=== PATIENT | female | born 1935 | race African-American/Black ===

== ENCOUNTER 2017-02-02 17:21 | Observation (INO) | payer MEDICARE, MEDICAID ==
[~2017-02-02] VITALS: Ht 170.2 cm; Wt 91.6 kg
[~2017-02-02 17:21] MED LIST: AMBIEN5 MG PO; ANASTROZOLE1 MG PO; ARIMIDEX1 MG PO; ASPIRIN ADULT L81 M2; ASPIRIN LOW81 M1 PO; ASPIRIN81 MG PO; CALCIUM 600+D3 PO; CARAFATE1 GM PO; CELEBREX200 MG OR; COREG25 MG PO; COZAAR100 MG OR; CRESTOR20 MG PO; CYCLOBENZAPR10 MG PO; DARVOCET N-100100 - OR; DONEPEZIL5 MG PO; FERROUS SULF324 M1 PO; FLEXERIL10 MG PO; HYDROXYZ HCL50 MG OR; LASIX 40 MG TAB40 MG PO; LASIX 40 MG40 MG/TAB PO; LEVAQUIN750 MG PO; LIPITOR20 MG OR; LISINOPRIL10 MG PO; LISINOPRIL20 MG PO; LOPRESSOR50 MG PO; LORTAB 10 PO; METOLAZONE2.5 MG PO; METOPROLOL100 MG OR; NAPROXEN375 MG OR; NEXIUM40 M1 OR; NORCO1 TAB PO; NORVASC5 MG PO; OMEPRAZOLE20 MG PO; OMEPRAZOLE40 MG PO; PENICILLN VK500 MG OR; PERCOCET 10/31 COMBO PO; PLAVIX75 MG; PRAVASTATIN20 MG PO
[2017-02-02 19:09] LABS: IMMATURE GRANULOCYTES 0.3 % (0.0-1.0); MEAN CELL VOLUME 70.6 fL CALC (80.0-100.0); MEAN CORPUSCULAR HGB 19.4 pG CALC (26.0-32.0); MEAN CORPUSCULAR HGB CONC 27.5 g/L CALC (32.0-36.0); NEUT# 3.66 thou/uL (2.00-7.15); RED BLOOD COUNT 2.52 mill/uL (4.20-5.60); RED CELL DISTRI WIDTH 22.6 % (11.5-15.5)
[2017-02-02 19:19] LABS: HEMATOCRIT 17.8 % (37.0-47.0); HEMOGLOBIN 4.9 g/dl (12.0-16.0)
[2017-02-02 19:30] LABS: ALKALINE PHOSPHATASE 90 u/l (38-126); ANION GAP 16 (6-22 (CALC)); BILIRUBIN, TOTAL 0.4 mg/dL (0.0-1.4); BUN 11 mg/dL (8-23); BUN/CREATININE RATIO 15 (12-20 (CALC)); CARBON DIOXIDE 18 mmol/l (22-30); CHLORIDE 111 mmol/l (95-108); CREATININE 0.8 mg/dL (0.5-1.0); GFR > 60 ML/MIN (>=60 (CALC)); GFR FOR AFR.AMER. > 60 ML/MIN (>=60 (CALC)); GLUCOSE 90 mg/dL (82-115); POTASSIUM 4.5 mmol/l (3.5-5.1); SGOT/AST 35 u/l (9-36); SGPT/ALT 17 u/l (11-66); SODIUM 140 mmol/l (137-146); TOTAL PROTEIN 7.5 g/dL (6.3-8.2)
[2017-02-02 20:52] VITALS: BP 166/90
[2017-02-02 21:30] VITALS: BP 198/87
[2017-02-03] VITALS (7 sets, daily range): BP systolic 150–193; BP diastolic 67–83
[2017-02-03 02:07] LABS: URINE BILIRUBIN - DIPSTICK NEGATIVE (NEGATIVE); URINE BLOOD DIPSTICK NEGATIVE (NEGATIVE); URINE CLARITY SLIGHT CLOUDY; URINE COLOR YELLOW; URINE GLUCOSE - DIPSTICK NEGATIVE (NEGATIVE); URINE KETONE NEGATIVE (NEGATIVE); URINE LEUK ESTERASE NEGATIVE (NEGATIVE); URINE NITRITE - DIPSTICK NEGATIVE (Negative); URINE PH 5.5 (4.5-8.0); URINE PROTEIN - DIPSTICK NEGATIVE (NEG-TRACE); URINE SPECIFIC GRAVITY 1.015; URINE UROBILINOGEN - DIPSTICK 0.2 E.U./dL (0.2)
[2017-02-03 07:31] LABS: HEMATOCRIT 26.8 % (37.0-47.0); HEMOGLOBIN 8.1 g/dl (12.0-16.0)
[2017-02-03 14:53] LABS: HEMATOCRIT 25.5 % (37.0-47.0); HEMOGLOBIN 7.9 g/dl (12.0-16.0)
[2017-02-03] MEDS ORDERED: FERROUS SULF325 M2 PO (14:59)
== END 2017-02-03 15:47 | disposition home or self-care (01) ==
LOC: ENPENDDIS → ED 17:21 → ED-I 20:20 → ED 20:56 → MS2 20:57
PROVIDERS: Emergency Medicine; Internal Medicine; ADMIT Internal Medicine; ATTEND Internal Medicine
PROC: 30233N1 Transfusion of Nonautologous Red Blood Cells into Peripheral Vein, Percutaneous Approach (ICD-10-PCS; principal; 2017-02-02)
PROC: 30233N1 Transfusion of Nonautologous Red Blood Cells into Peripheral Vein, Percutaneous Approach (ICD-10-PCS; 2017-02-02)
DX: D50.9 Iron deficiency anemia, unspecified (principal); I10 Essential (primary) hypertension; I25.10 Atherosclerotic heart disease of native coronary artery without angina pectoris; K21.9 Gastro-esophageal reflux disease without esophagitis; E78.5 Hyperlipidemia, unspecified; F17.210 Nicotine dependence, cigarettes, uncomplicated; Z85.3 Personal history of malignant neoplasm of breast; Z95.5 Presence of coronary angioplasty implant and graft
CPT/HCPCS: P9016

== ENCOUNTER 2018-01-05 07:47 | Day surgery (SDC) | payer MEDICARE, MEDICAID ==
[~2018-01-05] VITALS: Ht 170.2 cm; Wt 86.2 kg
[~2018-01-05 07:47] MED LIST changes: +FERROUS SULF325 M2 PO; +VIT A
[2018-01-05 09:54] VITALS: BP 146/66
== END 2018-01-05 10:05 | disposition home or self-care (01) ==
LOC: ENDO 07:47 → ORM 10:45
PROVIDERS: ATTEND Surgery
PROC: 0DJ08ZZ Inspection of Upper Intestinal Tract, Via Natural or Artificial Opening Endoscopic (ICD-10-PCS; principal; 2018-01-05)
PROC: 0DJD8ZZ Inspection of Lower Intestinal Tract, Via Natural or Artificial Opening Endoscopic (ICD-10-PCS; 2018-01-05)
DX: D64.9 Anemia, unspecified (principal); K21.9 Gastro-esophageal reflux disease without esophagitis; I10 Essential (primary) hypertension; G89.29 Other chronic pain; M54.9 Dorsalgia, unspecified

== ENCOUNTER 2018-01-10 21:18 | Inpatient (IN) | payer MEDICARE, MEDICAID ==
[~2018-01-10] VITALS: Ht 170.2 cm; Wt 86.1 kg
[2018-01-10] MEDS ORDERED: OMEPRAZOLE10 MG PO (21:46)
[2018-01-10] MEDS ORDERED: NORVASC5 M1 PO (21:46)
[2018-01-10 21:50] LABS: IMMATURE GRANULOCYTES 0.4 % (0.0-1.0); MEAN CELL VOLUME 77.4 fL CALC (80.0-100.0); MEAN CORPUSCULAR HGB 21.7 pG CALC (26.0-32.0); NEUT# 3.98 thou/uL (2.00-7.15); RED BLOOD COUNT 3.23 mill/uL (4.20-5.60); RED CELL DISTRI WIDTH 24.2 % (11.5-15.5)
[2018-01-10 22:04] LABS: ALBUMIN 3.8 g/dL (3.2-5.0); ALKALINE PHOSPHATASE 117 u/l (38-126); ANION GAP 19 (6-22 (CALC)); BILIRUBIN, TOTAL 0.3 mg/dL (0.0-1.4); BUN 14 mg/dL (8-23); BUN/CREATININE RATIO 19 (12-20 (CALC)); CARBON DIOXIDE 19 mmol/l (22-30); CHLORIDE 107 mmol/l (95-108); CREATININE 0.7 mg/dL (0.5-1.0); GFR > 60 ML/MIN (>=60 (CALC)); GFR FOR AFR.AMER. > 60 ML/MIN (>=60 (CALC)); POTASSIUM 3.7 mmol/l (3.5-5.1); SGPT/ALT 19 u/l (11-66); SODIUM 141 mmol/l (137-146); TOTAL PROTEIN 7.3 g/dL (6.3-8.2)
[2018-01-10 22:05] LABS: PROTHROMBIN TIME 10.7 SECONDS (9.0-12.5)
[2018-01-10 22:12] LABS: SGOT/AST 31 u/l (9-36)
[2018-01-10 22:16] LABS: MYOGLOBIN 60 ng/mL (0 - 62)
[2018-01-11] VITALS (23 sets, daily range): BP systolic 108–161; BP diastolic 52–79
[2018-01-11 00:26] LABS: URINE BILIRUBIN - DIPSTICK NEGATIVE (NEGATIVE); URINE BLOOD DIPSTICK NEGATIVE (NEGATIVE); URINE COLOR YELLOW; URINE GLUCOSE - DIPSTICK 100 mg/dL (NEGATIVE); URINE KETONE NEGATIVE (NEGATIVE); URINE LEUK ESTERASE TRACE (NEGATIVE); URINE NITRITE - DIPSTICK NEGATIVE (Negative); URINE PH 5.5 (4.5-8.0); URINE PROTEIN - DIPSTICK NEGATIVE (NEG-TRACE); URINE SPECIFIC GRAVITY 1.015; URINE UROBILINOGEN - DIPSTICK 0.2 E.U./dL (0.2)
[2018-01-11 00:31] LABS: URINE CLARITY CLEAR
[2018-01-11 23:29] LABS: HEMATOCRIT 29.2 % (37.0-47.0); IMMATURE GRANULOCYTES 0.3 % (0.0-1.0); MEAN CELL VOLUME 77.5 fL CALC (80.0-100.0); MEAN CORPUSCULAR HGB 23.9 pG CALC (26.0-32.0); MEAN CORPUSCULAR HGB CONC 30.8 g/L CALC (32.0-36.0); NEUT# 4.56 thou/uL (2.00-7.15); RED BLOOD COUNT 3.77 mill/uL (4.20-5.60); RED CELL DISTRI WIDTH 22.1 % (11.5-15.5)
[2018-01-12] VITALS (7 sets, daily range): BP systolic 149–164; BP diastolic 71–85
[2018-01-12 04:32] LABS: HEMATOCRIT 30.1 % (37.0-47.0); HEMOGLOBIN 9.2 g/dl (12.0-16.0); MEAN CELL VOLUME 76.6 fL CALC (80.0-100.0); MEAN CORPUSCULAR HGB 23.4 pG CALC (26.0-32.0); MEAN CORPUSCULAR HGB CONC 30.6 g/L CALC (32.0-36.0); RED BLOOD COUNT 3.93 mill/uL (4.20-5.60); RED CELL DISTRI WIDTH 21.6 % (11.5-15.5)
[2018-01-12 04:45] LABS: ANION GAP 15 (6-22 (CALC)); BUN 16 mg/dL (8-23); BUN/CREATININE RATIO 23 (12-20 (CALC)); CARBON DIOXIDE 24 mmol/l (22-30); CHLORIDE 107 mmol/l (95-108); CREATININE 0.7 mg/dL (0.5-1.0); GFR > 60 ML/MIN (>=60 (CALC)); GFR FOR AFR.AMER. > 60 ML/MIN (>=60 (CALC)); POTASSIUM 4.2 mmol/l (3.5-5.1); SODIUM 142 mmol/l (137-146)
== END 2018-01-12 11:20 | disposition home or self-care (01) | DRG 812 ==
LOC: ED 21:18 → ED-I 01-11 00:20 → ED 01-11 01:11 → ICU 01-11 01:12
PROVIDERS: Emergency Medicine; Internal Medicine; ADMIT Internal Medicine; ATTEND Internal Medicine
PROC: 5A09357 Assistance with Respiratory Ventilation, Less than 24 Consecutive Hours, Continuous Positive Airway Pressure (ICD-10-PCS; 2018-01-10)
PROC: 30233N1 Transfusion of Nonautologous Red Blood Cells into Peripheral Vein, Percutaneous Approach (ICD-10-PCS; principal; 2018-01-11)
PROC: 30233N1 Transfusion of Nonautologous Red Blood Cells into Peripheral Vein, Percutaneous Approach (ICD-10-PCS; 2018-01-11)
DX: D62 Acute posthemorrhagic anemia (principal); I24.8 Other forms of acute ischemic heart disease; E78.5 Hyperlipidemia, unspecified; I25.10 Atherosclerotic heart disease of native coronary artery without angina pectoris; I10 Essential (primary) hypertension; F17.210 Nicotine dependence, cigarettes, uncomplicated; J45.909 Unspecified asthma, uncomplicated; K21.9 Gastro-esophageal reflux disease without esophagitis; Z85.3 Personal history of malignant neoplasm of breast; Z95.5 Presence of coronary angioplasty implant and graft
CPT/HCPCS: J1756; P9016; S0164

== ENCOUNTER 2018-12-01 10:50 | Outpatient (REF) | payer MEDICARE, MEDICAID ==
[~2018-12-01 10:50] MED LIST changes: +NORVASC5 M1 PO; +OMEPRAZOLE10 MG PO; +QC IBUPROFEN200 M1 PO
[2018-12-01 11:07] VITALS: BP 180/93
== END 2018-12-01 12:07 | disposition home or self-care (01) ==
LOC: INF 10:50
PROVIDERS: ATTEND Internal Medicine
DX: D50.8 Other iron deficiency anemias (principal); N18.3 Chronic kidney disease, stage 3 (moderate)
CPT/HCPCS: Q0138

== ENCOUNTER → 2018-12-19 | Outpatient (REF) | payer MEDICARE, MEDICAID ==
[~2018-12-19] MED LIST changes: +CHOLESTEROL MED PO; +PERCOCET 5/325M1 TAB PO
== END | disposition home or self-care (01) ==
LOC: CT 13:00
PROVIDERS: ATTEND Internal Medicine
DX: R05 Cough (principal); R91.8 Other nonspecific abnormal finding of lung field

== ENCOUNTER 2018-12-28 08:11 | Day surgery (SDC) | payer MEDICARE, MEDICAID ==
[~2018-12-28] VITALS: Ht 170.2 cm; Wt 89.8 kg
[~2018-12-28 08:11] MED LIST changes: -CHOLESTEROL MED PO; -PERCOCET 5/325M1 TAB PO
[2018-12-28] MEDS ORDERED: PERCOCET 5/325M1 TAB PO (08:38)
[2018-12-28] MEDS ORDERED: CHOLESTEROL MED PO (08:39)
[2018-12-28 11:08] VITALS: BP 170/78
== END 2018-12-28 11:51 | disposition home or self-care (01) ==
LOC: ENDO 08:11 → ORM 08:11
PROVIDERS: ATTEND Anesthesiology Pain Medicine
PROC: 3E0T3BZ Introduction of Anesthetic Agent into Peripheral Nerves and Plexi, Percutaneous Approach (ICD-10-PCS; principal; 2018-12-28)
PROC: 3E0T33Z Introduction of Anti-inflammatory into Peripheral Nerves and Plexi, Percutaneous Approach (ICD-10-PCS; 2018-12-28)
PROC: 3E0T3BZ Introduction of Anesthetic Agent into Peripheral Nerves and Plexi, Percutaneous Approach (ICD-10-PCS; 2018-12-28)
PROC: 3E0T33Z Introduction of Anti-inflammatory into Peripheral Nerves and Plexi, Percutaneous Approach (ICD-10-PCS; 2018-12-28)
PROC: 3E0U3BZ Introduction of Anesthetic Agent into Joints, Percutaneous Approach (ICD-10-PCS; 2018-12-28)
PROC: 3E0U33Z Introduction of Anti-inflammatory into Joints, Percutaneous Approach (ICD-10-PCS; 2018-12-28)
DX: M54.5 Low back pain (principal); M70.61 Trochanteric bursitis, right hip

== ENCOUNTER 2019-11-29 | Emergency (ER) | payer MEDICARE, MEDICAID ==
[~2019-11-29] MED LIST changes: +CHOLESTEROL MED PO; +PERCOCET 5/325M1 TAB PO
[2019-11-29] MEDS ORDERED: LASIX 40 MG TAB40 MG PO (14:36)
[2019-11-29] MEDS ORDERED: HYDROCHLOROT12.5 MG PO (14:36)
[2019-11-29] MEDS ORDERED: ATENOLOL25 MG PO (14:37)
[2019-11-29] MEDS ORDERED: LISINOPRIL20 MG PO (14:38)
[2019-11-29] MEDS ORDERED: POT CHLORIDE20 ME3 PO (14:38)
[2019-11-29] MEDS ORDERED: LIPITOR10 M1 PO (14:39)
[2019-11-29] MEDS ORDERED: ELIQUIS2.5 MG PO (14:40)
[2019-11-29 15:20] LABS: HEMATOCRIT 35.8 % (37.0-47.0); HEMOGLOBIN 10.4 g/dl (12.0-16.0); IMMATURE GRANULOCYTES 0.3 % (0.0-5.0); MEAN CELL VOLUME 83.6 fL CALC (80.0-100.0); MEAN CORPUSCULAR HGB 24.3 pG CALC (26.0-32.0); MEAN CORPUSCULAR HGB CONC 29.1 g/L CALC (32.0-36.0); NEUT# 1.49 thou/uL (2.00-7.15); RED BLOOD COUNT 4.28 mill/uL (4.20-5.60); RED CELL DISTRI WIDTH 24.3 % (11.5-15.5)
[2019-11-29 15:32] LABS: ALBUMIN 4.4 g/dL (3.2-5.0); ALKALINE PHOSPHATASE 97 u/l (38-126); AMYLASE 88 u/l (30-110); ANION GAP 14 (6-22 (CALC)); BILIRUBIN, TOTAL 0.4 mg/dL (0.0-1.4); BUN 14 mg/dL (8-23); BUN/CREATININE RATIO 20 (12-20 (CALC)); CHLORIDE 107 mmol/l (95-108); CREATININE 0.7 mg/dL (0.5-1.0); ETHYL ALCOHOL 0 mg/dl (0-30); GFR > 60 ML/MIN (>=60 (CALC)); GFR FOR AFR.AMER. > 60 ML/MIN (>=60 (CALC)); LIPASE 180 u/l (23-300); POTASSIUM 4.2 mmol/l (3.5-5.1); SGOT/AST 18 u/l (9-36); SODIUM 139 mmol/l (137-146); TOTAL PROTEIN 7.9 g/dL (6.3-8.2)
[2019-11-29 15:41] LABS: ACT PARTIAL THROMBO TIME 26.8 SECONDS (20.0-32.5); PROTHROMBIN TIME 10.4 SECONDS (9.0-12.5)
[2019-11-29 16:02] LABS: CARBON DIOXIDE 22 mmol/l (22-30)
[2019-11-29 18:57] LABS: URINE BILIRUBIN - DIPSTICK NEGATIVE (NEGATIVE); URINE BLOOD DIPSTICK NEGATIVE (NEGATIVE); URINE COLOR YELLOW; URINE GLUCOSE - DIPSTICK NEGATIVE (NEGATIVE); URINE KETONE NEGATIVE (NEGATIVE); URINE LEUK ESTERASE NEGATIVE (NEGATIVE); URINE NITRITE - DIPSTICK NEGATIVE (Negative); URINE PROTEIN - DIPSTICK NEGATIVE (NEG-TRACE)
== END 2019-11-29 19:47 ==
DX: K92.1 Melena (principal); I48.91 Unspecified atrial fibrillation; I10 Essential (primary) hypertension; Z79.01 Long term (current) use of anticoagulants

== ENCOUNTER 2019-12-31 | Emergency (ER) | payer MEDICARE, MEDICAID ==
[~2019-12-31] MED LIST changes: +ATENOLOL25 MG PO; +ELIQUIS2.5 MG PO; +HYDROCHLOROT12.5 MG PO; +LIPITOR10 M1 PO; +POT CHLORIDE20 ME3 PO
[2019-12-31 22:27] LABS: HEMATOCRIT 39.5 % (37.0-47.0); HEMOGLOBIN 11.9 g/dl (12.0-16.0); IMMATURE GRANULOCYTES 0.6 % (0.0-5.0); MEAN CELL VOLUME 84.9 fL CALC (80.0-100.0); MEAN CORPUSCULAR HGB 25.6 pG CALC (26.0-32.0); MEAN CORPUSCULAR HGB CONC 30.1 g/dL CAL (32.0-36.0); NEUT# 2.52 thou/uL (2.00-7.15); RED BLOOD COUNT 4.65 mill/uL (4.20-5.60); RED CELL DISTRI WIDTH 25.1 % (11.5-15.5)
[2019-12-31 23:01] LABS: ALBUMIN 4.2 g/dL (3.2-5.0); ALKALINE PHOSPHATASE 126 u/l (38-126); ANION GAP 13 (6-22 (CALC)); BILIRUBIN, TOTAL 0.5 mg/dL (0.0-1.4); BUN 21 mg/dL (8-23); BUN/CREATININE RATIO 29 (12-20 (CALC)); CARBON DIOXIDE 24 mmol/l (22-30); CHLORIDE 109 mmol/l (95-108); CREATININE 0.7 mg/dL (0.5-1.0); ETHYL ALCOHOL 0 mg/dl (0-30); GFR > 60 ML/MIN (>=60 (CALC)); GFR FOR AFR.AMER. > 60 ML/MIN (>=60 (CALC)); MAGNESIUM 2.3 mg/dL (1.6-2.3); POTASSIUM 4.1 mmol/l (3.5-5.1); SGOT/AST 25 u/l (9-36); SODIUM 141 mmol/l (137-146); TOTAL PROTEIN 8.1 g/dL (6.3-8.2)
[2019-12-31 23:13] LABS: MYOGLOBIN 136 ng/mL (0 - 62)
[2019-12-31 23:31] LABS: TSH, 3RD GENERATION 4.41 uIU/mL (0.47 - 4.68)
[2019-12-31 23:47] LABS: URINE BILIRUBIN - DIPSTICK NEGATIVE (NEGATIVE); URINE BLOOD DIPSTICK NEGATIVE (NEGATIVE); URINE COLOR YELLOW; URINE GLUCOSE - DIPSTICK NEGATIVE (NEGATIVE); URINE KETONE NEGATIVE (NEGATIVE); URINE LEUK ESTERASE NEGATIVE (NEGATIVE); URINE NITRITE - DIPSTICK NEGATIVE (Negative); URINE PH 5.5 (4.5-8.0); URINE PROTEIN - DIPSTICK NEGATIVE (NEG-TRACE); URINE SPECIFIC GRAVITY >=1.030
[2019-12-31 23:49] LABS: BARBITURATES NEGATIVE (NEGATIVE); COCAINE NEGATIVE (NEGATIVE); METHADONE NEGATIVE (NEGATIVE); OXCYCODONE NEGATIVE (NEGATIVE); TETRAHYDROCANNABIONOL NEGATIVE (NEGATIVE); TRICYLIC ANTIDEPRESSANTS NEGATIVE (NEGATIVE)
== END 2020-01-01 00:50 | disposition home or self-care (01) ==
PROVIDERS: Family Medicine
DX: T42.8X1A Poisoning by antiparkinsonism drugs and other central muscle-tone depressants, accidental (unintentional), initial encounter (principal); R41.0 Disorientation, unspecified; R44.1 Visual hallucinations; R91.8 Other nonspecific abnormal finding of lung field; I48.91 Unspecified atrial fibrillation; T40.2X6A Underdosing of other opioids, initial encounter; I10 Essential (primary) hypertension; Z91.128 Patient's intentional underdosing of medication regimen for other reason; Z91.14 Patient's other noncompliance with medication regimen

== ENCOUNTER 2020-03-15 16:03 | Emergency (ER) | payer MEDICARE, MEDICAID ==
[2020-03-15] MEDS ORDERED: MOTRIN400 MG PO ×2 (17:27)
[2020-03-15 17:52] VITALS: BP 179/87
== END 2020-03-15 17:58 | disposition home or self-care (01) ==
LOC: ED 16:03
DX: M25.561 Pain in right knee (principal); I10 Essential (primary) hypertension; F17.200 Nicotine dependence, unspecified, uncomplicated; W20.8XXA Other cause of strike by thrown, projected or falling object, initial encounter; Y93.89 Activity, other specified; Y92.512 Supermarket, store or market as the place of occurrence of the external cause; Z96.653 Presence of artificial knee joint, bilateral
CPT/HCPCS: L1830

== ENCOUNTER 2020-06-30 14:39 | Emergency (ER) | payer MEDICARE, MEDICAID ==
[~2020-06-30] VITALS: Ht 170.2 cm; Wt 85.0 kg
[~2020-06-30 14:39] MED LIST changes: +MOTRIN400 MG PO
[2020-06-30 15:16] LABS: HEMATOCRIT 34.6 % (37.0-47.0); HEMOGLOBIN 10.5 g/dl (12.0-16.0); IMMATURE GRANULOCYTES 0.8 % (0.0-5.0); MEAN CELL VOLUME 84.6 fL CALC (80.0-100.0); MEAN CORPUSCULAR HGB 25.7 pG CALC (26.0-32.0); MEAN CORPUSCULAR HGB CONC 30.3 g/dL CAL (32.0-36.0); NEUT# 2.89 thou/uL (2.00-7.15); RED BLOOD COUNT 4.09 mill/uL (4.20-5.60); RED CELL DISTRI WIDTH 18.5 % (11.5-15.5)
[2020-06-30 15:28] LABS: URINE BILIRUBIN - DIPSTICK NEGATIVE (NEGATIVE); URINE BLOOD DIPSTICK NEGATIVE (NEGATIVE); URINE CLARITY CLEAR; URINE COLOR YELLOW; URINE GLUCOSE - DIPSTICK NEGATIVE (NEGATIVE); URINE KETONE NEGATIVE (NEGATIVE); URINE LEUK ESTERASE NEGATIVE (Negative); URINE NITRITE - DIPSTICK NEGATIVE (Negative); URINE PH 5.5 (4.5-8.0); URINE PROTEIN - DIPSTICK NEGATIVE (NEG-TRACE); URINE SPECIFIC GRAVITY 1.015; URINE UROBILINOGEN - DIPSTICK 0.2 E.U./dL (0.2)
[2020-06-30 15:30] LABS: ALKALINE PHOSPHATASE 120 u/l (38-126); ANION GAP 16 (6-22 (CALC)); BILIRUBIN, TOTAL 0.3 mg/dL (0.0-1.4); BUN 13 mg/dL (8-23); BUN/CREATININE RATIO 18 (12-20 (CALC)); CARBON DIOXIDE 18 mmol/l (22-30); CHLORIDE 106 mmol/l (95-108); CREATININE 0.7 mg/dL (0.5-1.0); GFR > 60 ML/MIN (>=60 (CALC)); GFR FOR AFR.AMER. > 60 ML/MIN (>=60 (CALC)); POTASSIUM 3.6 mmol/l (3.5-5.1); SGOT/AST 19 u/l (9-36); SODIUM 136 mmol/l (137-146)
[2020-06-30] MEDS ORDERED: AZITHROMYCIN500 MG PO (16:00)
[2020-06-30] MEDS ORDERED: FLEXERIL5 M1 PO (16:00)
[2020-06-30] MEDS ORDERED: PERCOCET 5/321 COMBO PO (16:00)
[2020-06-30 16:40] VITALS: BP 137/71
== END 2020-06-30 16:40 | disposition home or self-care (01) ==
LOC: ED 14:39
DX: J18.9 Pneumonia, unspecified organism (principal); D64.9 Anemia, unspecified; R91.8 Other nonspecific abnormal finding of lung field; I10 Essential (primary) hypertension; F17.200 Nicotine dependence, unspecified, uncomplicated

== ENCOUNTER 2020-09-13 13:47 | Inpatient (IN) | payer MEDICARE, MEDICAID ==
[~2020-09-13] VITALS: Ht 167.6 cm; Wt 83.9 kg
[~2020-09-13 13:47] MED LIST changes: +AZITHROMYCIN500 MG PO; +FLEXERIL5 M1 PO; +PERCOCET 5/321 COMBO PO
--- NOTE | 2020-09-13 13:47 | NUR ---
PT TO ROOM 9 VIA EMS. BEDSIDE TRIAGE COMPLETED.
[2020-09-13] MEDS ORDERED: PROAIR HFA108 MCG/AC PO (14:04)
[2020-09-13] MEDS ORDERED: BL IBUPROFEN200 MG PO (14:06)
[2020-09-13] MEDS ORDERED: HYDROCHLOROT12.5 MG PO (14:06)
[2020-09-13] MEDS ORDERED: ELIQUIS2.5 MG PO (14:06)
[2020-09-13] MEDS ORDERED: ATENOLOL25 MG PO (14:07)
[2020-09-13] MEDS ORDERED: FUROSEMIDE20 MG PO (14:07)
[2020-09-13] MEDS ORDERED: NORVASC10 M1 PO (14:08)
[2020-09-13] MEDS ORDERED: ZESTRIL10 M1 PO (14:08)
[2020-09-13] MEDS ORDERED: OMEPRAZOLE DR40 MG PO (14:09)
[2020-09-13] MEDS ORDERED: K-TAB20 MEQ PO (14:09)
[2020-09-13] MEDS ORDERED: LIPITOR10 M1 PO (14:09)
[2020-09-13] MEDS ORDERED: NITROGLYCERIN0.4 MG SL (14:10)
--- NOTE | 2020-09-13 14:39 | NUR ---
RADIOLOGY BEDSIDE FOR PORT XRAYS.
[2020-09-13 14:42] LABS: HEMOGLOBIN 10.4 g/dl (12.0-16.0); IMMATURE GRANULOCYTES 0.2 % (0.0-5.0); MEAN CORPUSCULAR HGB 23.6 pG CALC (26.0-32.0); MEAN CORPUSCULAR HGB CONC 30.6 g/dL CAL (32.0-36.0); NEUT# 2.57 thou/uL (2.00-7.15); RED BLOOD COUNT 4.4 mill/uL (4.20-5.60); RED CELL DISTRI WIDTH 22.6 % (11.5-15.5)
[2020-09-13 14:45] LABS: MEAN CELL VOLUME 77.3 fL CALC (80.0-100.0)
[2020-09-13 14:49] LABS: ALBUMIN 3.8 g/dL (3.2-5.0); ALKALINE PHOSPHATASE 99 u/l (38-126); BUN 10 mg/dL (8-23); BUN/CREATININE RATIO 16 (12-20 (CALC)); CHLORIDE 103 mmol/l (95-108); CREATININE 0.6 mg/dL (0.5-1.0); GFR > 60 ML/MIN (>=60 (CALC)); GFR FOR AFR.AMER. > 60 ML/MIN (>=60 (CALC)); LIPASE 27 u/l (23-300); SGOT/AST 21 u/l (9-36); SODIUM 138 mmol/l (137-146); TOTAL PROTEIN 7.3 g/dL (6.3-8.2)
[2020-09-13 14:53] LABS: ANION GAP 10 (6-22 (CALC)); BILIRUBIN, TOTAL 0.6 mg/dL (0.0-1.4); CARBON DIOXIDE 27 mmol/l (22-30); POTASSIUM 2.4 mmol/l (3.5-5.1)
[2020-09-13 14:56] LABS: ACT PARTIAL THROMBO TIME 24.7 SECONDS (20.0-32.5); INTERNATIONAL NORMALIZED RATIO 1.1 RATIO (0.7-1.3); PROTHROMBIN TIME 10.8 SECONDS (9.0-12.5)
--- NOTE | 2020-09-13 15:11 | NUR ---
PT TRANSPORTED TO CT VIA STRETCHER FOR SCANS.
--- NOTE | 2020-09-13 15:31 | NUR ---
PT RETURNS FROM CT. PLACED ON PENSION CONSULTANT. POTASSIUM PO AND IV ADMINISTERED PER MAR ORDER.
--- NOTE | 2020-09-13 15:45 | NUR ---
PT STATES KCL INFUSION PAINFUL AND BURNING AT SITE, ICE PACK GIVEN, ORDER FOR IVF @ [facility].
--- NOTE | 2020-09-13 16:15 | NUR ---
NEW IV INITITATED TO LEFT HAND BY ARACELI MADRIGAL. PT TOLERATED WELL. CIO BEDSIDE FOR LACTIC ACID DRAW.
--- NOTE | 2020-09-13 16:35 | NUR ---
BLOOD CULTURE DRAWN BY NEWSPAPER PRESS OPERATOR APPRENTICE. PT TOLERATED WELL. PT AND GRANDDAUGHTER ADVISED OF WAIT TIME FOR ADMISSION. PT REQUESTING LUNCH TRAY AND PO FLUIDS. ORDER TO PROVIDE FOOD AND PO FLUIDS
--- NOTE | 2020-09-13 17:00 | NUR ---
VELCRO WRIST SPLINT APPLIED TO LEFT WRIST/HAND PER C/O PAIN WITH PALPATION AND MOVEMENT.
--- NOTE | 2020-09-13 17:18 | NUR ---
KCL COMPELTED AT THIS TIME. IV SITE APPEARS HEALTHY WITH NO REDNESS/SWELLING/WARMTH. IV ZITHROMAX INITIATED TO LEFT HAND SITE.PT RESTING ON STRETCHER WITH EYES CLOSED. RESP EVEN AND UNLABORED. SKIN WARM AND DRY. GRANDDAUGHTER ADVISED OF WAIT TIME FOR ADMISSION. VERBALIZED UNDERSTANDING. DENIES ANY NEEDS. CALL LIGHT WITHIN REACH.
--- NOTE | 2020-09-13 17:52 | NUR ---
REPORT GIVEN TO RAOMNA DE LA FUENTE
--- NOTE | 2020-09-13 18:05 | NUR ---
Admission Note Report Given to: RAMONA DE LA FUENTE Transported by: Wheelchair X Stretcher Transported with: X Nurse Transporter X Patent IV O2 X Drilling Field Operator Location: ICU X MS2 PT TRANSPORTED TO DC VIA STRETCHER WITH NS AND ZITHROMAX. CARE TRANSFERED TO DC STAFF IN STABLE CONDIITON. LEISA GREENE MADE AWARE OF PT ARRIVAL TO FLOOR AND ROOM.
[2020-09-13 18:15] VITALS: BP 102/57
--- NOTE | 2020-09-13 18:15 | NUR ---
PT ARRIVED TO THE UNIT VIA STRETCHER
--- NOTE | 2020-09-13 18:34 | NUR ---
PT IS RESTING WITH EYES CLOSED. IV SITE IN RW AND RH HAVE IV FLUIDS AND ABT INFUSING.
--- NOTE | 2020-09-13 22:53 | NUR ---
PHYSICAL ASSESMENT COMPLETE. PT C/O OF PAIN IN HER LEFT WRIST. WILL GIVE PRN MEDICATION. SCHEDULED MEDICATIONS AND PRN MEDICATION ADMINISTERED, SEE E-MAR. PT DENIES ANY NEEDS AT THIS TIME. PLAN OF CARE REVIEWED, PT DENIES QUESTIONS, VERBALIZES UNDERSTANDING. ITEMS WITHIN REACH, BED LOCKED IN LOW POSITION W/ BEDRAILS UP X2. CALL CADENA WITHIN REACH, AGREES TO CALL PRN.
[2020-09-14 00:56] VITALS: BP 164/82
--- NOTE | 2020-09-14 02:14 | NUR ---
PT LAYING IN BED WITH EYES CLOSED, APPEARS TO BE SLEEPING, APPEARS COMFORTABLE AND IN NO DISTRESS. RESPIRATIONS REGULAR AND UNLABORED. ITEMS REMAIN WITHIN REACH, CALL CADENA REMAINS WITHIN REACH. PT BP WAS 164/82 CHECKED MANUALLY. BED REMAINS LOCKED AND IN LOW POSITION WITH BEDRAILS UP X2. WILL CONTINUE TO MONITOR.
[2020-09-14 03:50] VITALS: BP 181/84
--- NOTE | 2020-09-14 04:02 | NUR ---
PT RESTING IN BED, NO SIGNS OF DISTRESS NOTED, RESP EVEN AND UNLABORED. PT VOICES NO NEEDS OR COMPLAINTS AT THIS TIME. CALL LIGHT IN REACH, CONTINUE TO MONITOR.
--- NOTE | 2020-09-14 07:10 | NUR ---
REPORT RECEIVED FROM ARACELI VYAS. PT RESTING IN BED, FREE FROM DISTRESS AT THIS TIME. SAFETY PRECAUTIONS IN PLACE. WILL CONTINUE TO MONITOR.
[2020-09-14 07:33] LABS: BUN 7 mg/dL (8-23); BUN/CREATININE RATIO 12 (12-20 (CALC)); CARBON DIOXIDE 26 mmol/l (22-30); CHLORIDE 107 mmol/l (95-108); CREATININE 0.5 mg/dL (0.5-1.0); GFR > 60 ML/MIN (>=60 (CALC)); GFR FOR AFR.AMER. > 60 ML/MIN (>=60 (CALC)); SODIUM 141 mmol/l (137-146)
[2020-09-14 07:38] LABS: ANION GAP 11 (6-22 (CALC)); MAGNESIUM 1.7 mg/dL (1.6-2.3); POTASSIUM 3.1 mmol/l (3.5-5.1)
[2020-09-14 08:43] VITALS: BP 190/96
--- NOTE | 2020-09-14 08:43 | NUR ---
PT RESTING IN BED, ALERT AND ORIENTED. RESPIRATIONS ARE LABORED ON RA, LUNGS SOUND COARSE. PEDAL PULSES ARE WEAK. PT DENIES ANY PAIN AT THIS TIME. PT ASSISTED TO REPOSISTION IN BED PER REQUEST. PT PROVIDED WITH GRAPE JUICE PER REQUEST. HOME MED COUNTED WITH PT AND SENT TO PHARMACY. SAFETY PRECAUTIONS IN PLACE. WILL CONTINUE TO MONITOR.
[2020-09-14 11:15] VITALS: BP 153/67
--- NOTE | 2020-09-14 12:20 | NUR ---
PT RESTING IN BED, NO S/S OF DISTRESS AT THIS TIME. SAFETY PRECAUTIONS IN PLACE. WILL CONTINUE TO MONITOR.
[2020-09-14] MEDS ORDERED: AZITHROMYCIN500 MG PO (14:13)
--- NOTE | 2020-09-14 15:45 | NUR ---
PT RESTING IN BED, PT PROVIDED WITH SODA PER REQUEST. SAFETY PRECAUTIONS IN PLACE. WILL CONTINUE TO MONITOR.
--- NOTE | 2020-09-14 17:15 | NUR ---
Discharge instructions given. Patient verbalizes understanding of same. Discharged in stable condition via Wheelchair to Home with family. All belongings sent with pt.
== END 2020-09-14 17:15 | DRG 552 ==
LOC: ED 13:47 → ED-I 15:01 → ED 16:15 → MS2 16:16
PROVIDERS: ADMIT Internal Medicine; ATTEND Internal Medicine
DX: S32.040A Wedge compression fracture of fourth lumbar vertebra, initial encounter for closed fracture (principal); S32.020A Wedge compression fracture of second lumbar vertebra, initial encounter for closed fracture; E87.6 Hypokalemia; R91.8 Other nonspecific abnormal finding of lung field; I10 Essential (primary) hypertension; J45.909 Unspecified asthma, uncomplicated; M79.642 Pain in left hand; M25.512 Pain in left shoulder; M47.816 Spondylosis without myelopathy or radiculopathy, lumbar region; I25.10 Atherosclerotic heart disease of native coronary artery without angina pectoris; E78.5 Hyperlipidemia, unspecified; K21.9 Gastro-esophageal reflux disease without esophagitis; F17.200 Nicotine dependence, unspecified, uncomplicated; W06.XXXA Fall from bed, initial encounter; Y92.003 Bedroom of unspecified non-institutional (private) residence as the place of occurrence of the external cause; Z95.5 Presence of coronary angioplasty implant and graft; Z85.3 Personal history of malignant neoplasm of breast; Z20.828 Contact with and (suspected) exposure to other viral communicable diseases

== ENCOUNTER 2020-09-25 03:44 | Observation (INO) | payer MEDICARE, MEDICAID ==
[~2020-09-25] VITALS: Ht 170.2 cm; Wt 81.6 kg
[~2020-09-25 03:44] MED LIST changes: +BL IBUPROFEN200 MG PO; +FUROSEMIDE20 MG PO; +K-TAB20 MEQ PO; +NITROGLYCERIN0.4 MG SL; +NORVASC10 M1 PO; +OMEPRAZOLE DR40 MG PO; +PROAIR HFA108 MCG/AC PO; +ZESTRIL10 M1 PO
--- NOTE | 2020-09-25 03:44 | NUR ---
ASSUMED CARE, PT ARRIVED FROM HOME BY EMS WITH SOB. PT ASSSESSED, IV PLACED, LABS DRAWN, EKG PERFORMED, PLACED ON 4L O2, AND TELEMETRY.
--- NOTE | 2020-09-25 03:45 | NUR ---
ARRIVED VIA EMS WITH O2. PLACED ON RA FOR TRIAGE.
--- NOTE | 2020-09-25 04:15 | NUR ---
PT MEDICATED FOR COMPLAINT OF PAIN IN BACK AND LOWER EXTREMITIES. WILL CONTINUE TO MONITOR.
--- NOTE | 2020-09-25 04:20 | NUR ---
PT MEDICATED WITH VENTOLIN INHALER FOR SOB. PORTABLE XRAY COMPLETED. PT RESTING IN BED WITH MINIMAL RESPIRATORY DISTRESS.
[2020-09-25 04:29] LABS: HEMATOCRIT 32.3 % (37.0-47.0); HEMOGLOBIN 9.7 g/dl (12.0-16.0); IMMATURE GRANULOCYTES 0.2 % (0.0-5.0); MEAN CELL VOLUME 78.6 fL CALC (80.0-100.0); MEAN CORPUSCULAR HGB 23.6 pG CALC (26.0-32.0); NEUT# 4.92 thou/uL (2.00-7.15); RED BLOOD COUNT 4.11 mill/uL (4.20-5.60); RED CELL DISTRI WIDTH 22.8 % (11.5-15.5)
--- NOTE | 2020-09-25 04:40 | NUR ---
PT GRANDDAUGHTER IN LAW SITTING BEDSIDE WITH PT. NURSE INFORMED HER THE POC, SHE VERBALIZED UNDERSTANDING. WILL CONTINUE TO MONITOR.
[2020-09-25 04:46] LABS: ALBUMIN 3.5 g/dL (3.2-5.0); ALKALINE PHOSPHATASE 107 u/l (38-126); ANION GAP 10 (6-22 (CALC)); BUN 13 mg/dL (8-23); BUN/CREATININE RATIO 20 (12-20 (CALC)); CARBON DIOXIDE 22 mmol/l (22-30); CHLORIDE 110 mmol/l (95-108); CREATININE 0.6 mg/dL (0.5-1.0); GFR > 60 ML/MIN (>=60 (CALC)); GFR FOR AFR.AMER. > 60 ML/MIN (>=60 (CALC)); POTASSIUM 2.8 mmol/l (3.5-5.1); SGOT/AST 25 u/l (9-36); SODIUM 140 mmol/l (137-146)
[2020-09-25 04:50] LABS: BILIRUBIN, TOTAL 0.9 mg/dL (0.0-1.4)
[2020-09-25 05:01] LABS: ACT PARTIAL THROMBO TIME 21.6 SECONDS (20.0-32.5); INTERNATIONAL NORMALIZED RATIO 1.1 RATIO (0.7-1.3); PROTHROMBIN TIME 11.2 SECONDS (9.0-12.5)
--- NOTE | 2020-09-25 05:15 | NUR ---
PT MEDICATED AND ENCOURAGED PO FLUIDS, SHE CONSUMED 480ML. PT STATES SHE IS FEELING BETTER. PT BREATHING BETER AND PAIN HAS DECREASED.
--- NOTE | 2020-09-25 05:52 | NUR ---
[employer] PACKER TEST COMPLETED AND DELIVERED TO LAB.
--- NOTE | 2020-09-25 06:39 | NUR ---
PT ASSIGNED TO ROOM 260 IN MED SURG, PT RESTING WITH LIGHTS OFF AND EYES CLOSED WITHOUT S/S OF DISTRESS. WILL CONTINUE TO MONITOR. PT NOTIFIED OF POC.
--- NOTE | 2020-09-25 07:00 | NUR ---
REPORT GIVEN TO LEISA. PT AWAITING TRANSFER TO ROOM 260
--- NOTE | 2020-09-25 07:15 | NUR ---
PT ARRIVED VIA STRETCHER WITH STAFF . IV SITE AND TELE MONITOR IN PLACE.
--- NOTE | 2020-09-25 07:40 | NUR ---
ASSESSMENT IS COMPLETED: IV SITE IS FREE FROM REDNESS OR EDEMA. HR IS REG,PULSES ARE STRONG X4, ABD IS SOFT WITH ACTIV EBS. BREATH SOUDNS ARE WHEEZING AND DIMINISHED. TELE MONITOR IN PLACE., CONTINUE TO OSBERVE AND MONITOR.
[2020-09-25] MEDS ORDERED: OXYCODO-APAP1 TA2 PO (08:02)
[2020-09-25] MEDS ORDERED: HYDROCHLOROTH12.5 M1 PO (08:02)
[2020-09-25 08:30] VITALS: BP 127/80
[2020-09-25] MEDS ORDERED: LIPITOR10 M1 PO (08:58)
[2020-09-25] MEDS ORDERED: NORVASC5 M1 PO (08:58)
[2020-09-25] MEDS ORDERED: LISINOPRIL20 MG PO (08:59)
[2020-09-25] MEDS ORDERED: ELIQUIS2.5 MG PO (10:53)
[2020-09-25] MEDS ORDERED: K-TAB20 MEQ PO (10:53)
[2020-09-25] MEDS ORDERED: OMEPRAZOLE DR40 MG PO (10:53)
[2020-09-25] MEDS ORDERED: NITROSTAT0.4 MG SL (10:54)
[2020-09-25] MEDS ORDERED: FUROSEMIDE20 MG PO (10:54)
[2020-09-25] MEDS ORDERED: TENORMIN25 M1 PO (10:54)
--- NOTE | 2020-09-25 12:00 | NUR ---
PT IS RELAXING IN BED WITH NO DISTRESS NOTED. IV SITE IS FREE FROM REDNESS OR EDEMA.
[2020-09-25 15:10] VITALS: BP 147/80
--- NOTE | 2020-09-25 15:26 | NUR ---
SPEAKING WITH TRISTIAN GRANDDAUGHTER. IV SITE IS FREE FROM REDNESS OR EDEMA/ "FEELING ABANDON " DUE TO NOONE ABLE TO COME AND SEE HER.
--- NOTE | 2020-09-25 16:00 | NUR ---
PT IS RELAXING IN BED WITH NO DISTRESS NOTED. IV SITE IS FREE FROM REDNESS OR EDEMA.
--- NOTE | 2020-09-25 16:23 | NUR ---
SPOKE WITH TRISTIAN. PT IS ANGRY AND WANTING TO GO HOME. SPOKE WITH PT AND IS REQUESTING TO GO HOME ALSO.,
--- NOTE | 2020-09-25 16:42 | NUR ---
SPOKE WITH DR GOLDEN. WILL CALL TRISTIAN RE: PT.
[2020-09-25 19:09] VITALS: BP 144/72
--- NOTE | 2020-09-25 21:05 | NUR ---
PT MEDICATED ORDERS PROVIDE AND ASSESSMENT COMPLETED AT THIS TIME. LUNG SOUNDS ARE COURSE THROUGHOUT, 1+ EDEMA BLE. IVF RUNNING TO 20 TO RFA/SITE APPEARS HEALTHY. PT DENIES ANY NEEDS AT THIS TIME AND IS RETURNING TO SLEEP PRIOR TO MY LEAVING THE ROOM. CALL LIGHT W/IN REACH AND PT ENCOURAGED TO CALL.
[2020-09-26 00:07] VITALS: BP 131/80
--- NOTE | 2020-09-26 01:17 | NUR ---
PT MEDICATED FOR PAIN 8/10 ON PAIN SCALE REPORTED BY PT. PRIOR TO MY LEAVING THE ROOM SHE ASKED FOR A SANDWICH TO EAT, WE WERE OUT, SHE DENIES WANTING ANYTHING ELSE FOR A SNACK OR TO EAT. FRESH ICEWATER REPLENISHED AT THIS TIME. CALL LIGHT AT SIDE.
--- NOTE | 2020-09-26 02:10 | NUR ---
PT APPEARS TO BE SLEEPING AT THIS TIME. NO S/O DISTRESS NOTED.
--- NOTE | 2020-09-26 04:20 | NUR ---
PT SLEEPING, NO S/O DISTRESS NOTED AT THIS TIME. CALL LIGHT AT SIDE.
[2020-09-26 04:22] VITALS: BP 153/93
--- NOTE | 2020-09-26 05:01 | NUR ---
PT MEDICATED FOR PAIN 7/10 ON PAIN SCALE IN BACK. ASSISTED HER REPOSITIONING IN THE BED. PUREWICK IS IN PLACE SET TO CONTINUOUS LOW SUCTION. LOADING RACK SUPERVISOR PROVIDED COFFEE, PT IS SIPPING ON THAT. CALL LIGHT AT SIDE.
[2020-09-26 05:27] LABS: HEMATOCRIT 33.7 % (37.0-47.0); HEMOGLOBIN 9.7 g/dl (12.0-16.0); MEAN CELL VOLUME 80.2 fL CALC (80.0-100.0); MEAN CORPUSCULAR HGB 23.1 pG CALC (26.0-32.0); MEAN CORPUSCULAR HGB CONC 28.8 g/dL CAL (32.0-36.0); RED BLOOD COUNT 4.2 mill/uL (4.20-5.60); RED CELL DISTRI WIDTH 23.1 % (11.5-15.5)
[2020-09-26 06:02] LABS: ALBUMIN 3.6 g/dL (3.2-5.0); ALKALINE PHOSPHATASE 98 u/l (38-126); ANION GAP 13 (6-22 (CALC)); BILIRUBIN, TOTAL 1.1 mg/dL (0.0-1.4); BUN 13 mg/dL (8-23); BUN/CREATININE RATIO 21 (12-20 (CALC)); CARBON DIOXIDE 21 mmol/l (22-30); CHLORIDE 111 mmol/l (95-108); CREATININE 0.6 mg/dL (0.5-1.0); GFR > 60 ML/MIN (>=60 (CALC)); GFR FOR AFR.AMER. > 60 ML/MIN (>=60 (CALC)); POTASSIUM 5.8 mmol/l (3.5-5.1); SGOT/AST 42 u/l (9-36); SODIUM 139 mmol/l (137-146)
[2020-09-26 07:40] VITALS: BP 133/79
--- NOTE | 2020-09-26 07:40 | NUR ---
ASSESSMENT IS COMPLTED: IV SITE IS FREE FROM REDNESS OR EDEMA. HR IS REG,PULSES ARE STRONG X4, ABD IS SOFT WITH ACTIVE BS. BREATH SOUNDS ARE WHEEZING AND DIMINISHED. O2@4LITERS WITH NC. TELE MONITOR IN PLACE.
[2020-09-26] MEDS ORDERED: DOXYCYCL HYC100 MG PO (09:50)
--- NOTE | 2020-09-26 10:23 | NUR ---
WALK TEST PREFORMED. PT OFF OF NASAL CANNULA, ON ROOM AIR AT 0955. SPO2 MEASURED AT 1020. RESTING SPO2 ON ROOM AIR IS 86. DOCUMENTED ON PPROPRIATE FORM AND PLACED IN RT PORTION OF PT PHYSICAL CHART. RN AWARE. AWARE.
[2020-09-26 11:15] VITALS: BP 119/83
--- NOTE | 2020-09-26 11:18 | NUR ---
RECEIVED A CALL FROM ER RE: HEART RATE. OF 120'S TO 140'S/ CHECKED WITH O2 MONITOR IS READING 90'S. INFORMED DR GOLDEN. WILL WATCH PT.
--- NOTE | 2020-09-26 11:41 | NUR ---
INFORMED LISSETTE FROM [facility] NO O2 AT HOME. INFORMED BY TRISTIAN. THAT NO O2 WAS AT HOME.
--- NOTE | 2020-09-26 12:00 | NUR ---
PT IS RELAXING IN BED WITH NO DISTRESS NOTED. IV SITE IS FREE FROM REDNESS OR EDEMA.
--- NOTE | 2020-09-26 14:50 | NUR ---
IN GETTING PT READY FOR THE DISCHARGE. NOTICED HER IV SITE IS OUT. PT TOOK OUT STATING" IT GOT SNAGGED ON SOMETHING". GAVE INSTRUCTIONS TO TRISTIAN AND HER O2 IS IN THE ROOM.
--- NOTE | 2020-09-26 15:25 | NUR ---
PT BEING TRANSPORTED TO HER CAR WITH STAFF. O2 TANK IN TOW. Discharge instructions given. Patient verbalizes understanding of same. Discharged in stable condition via WC to HOME with family. All belongings sent with pt.
== END 2020-09-26 15:17 | disposition home health service (06) ==
LOC: ED 03:44 → ED-I 05:10 → ED 05:18 → MS2 05:19
PROVIDERS: Nurse Practitioner Family; ADMIT Internal Medicine; ATTEND Internal Medicine
DX: J18.9 Pneumonia, unspecified organism (principal); J44.0 Chronic obstructive pulmonary disease with (acute) lower respiratory infection; J96.01 Acute respiratory failure with hypoxia; I10 Essential (primary) hypertension; I25.10 Atherosclerotic heart disease of native coronary artery without angina pectoris; E87.6 Hypokalemia; E78.5 Hyperlipidemia, unspecified; C34.92 Malignant neoplasm of unspecified part of left bronchus or lung; K21.9 Gastro-esophageal reflux disease without esophagitis; S32.020D Wedge compression fracture of second lumbar vertebra, subsequent encounter for fracture with routine healing; S32.040D Wedge compression fracture of fourth lumbar vertebra, subsequent encounter for fracture with routine healing; F17.210 Nicotine dependence, cigarettes, uncomplicated; Z85.3 Personal history of malignant neoplasm of breast; X58.XXXD Exposure to other specified factors, subsequent encounter; Z20.828 Contact with and (suspected) exposure to other viral communicable diseases

== ENCOUNTER 2020-09-30 00:02 | Emergency (ER) | payer MEDICARE, MEDICAID ==
[~2020-09-30] VITALS: Ht 170.2 cm; Wt 82.0 kg
[~2020-09-30 00:02] MED LIST changes: +DOXYCYCL HYC100 MG PO; +HYDROCHLOROTH12.5 M1 PO; +NITROSTAT0.4 MG SL; +OXYCODO-APAP1 TA2 PO; +TENORMIN25 M1 PO
[2020-09-30] MEDS ORDERED: HYDROCHLOROT12.5 M1 PO (00:36)
[2020-09-30 00:46] LABS: HEMATOCRIT 33.4 % (37.0-47.0); HEMOGLOBIN 9.8 g/dl (12.0-16.0); IMMATURE GRANULOCYTES 0.3 % (0.0-5.0); MEAN CELL VOLUME 79.9 fL CALC (80.0-100.0); MEAN CORPUSCULAR HGB 23.4 pG CALC (26.0-32.0); MEAN CORPUSCULAR HGB CONC 29.3 g/dL CAL (32.0-36.0); NEUT# 3.96 thou/uL (2.00-7.15); RED BLOOD COUNT 4.18 mill/uL (4.20-5.60); RED CELL DISTRI WIDTH 22.5 % (11.5-15.5)
[2020-09-30 01:00] LABS: ALBUMIN 3.6 g/dL (3.2-5.0); ALKALINE PHOSPHATASE 114 u/l (38-126); BUN 13 mg/dL (8-23); BUN/CREATININE RATIO 23 (12-20 (CALC)); CARBON DIOXIDE 25 mmol/l (22-30); CHLORIDE 107 mmol/l (95-108); CREATININE 0.6 mg/dL (0.5-1.0); GFR > 60 ML/MIN (>=60 (CALC)); GFR FOR AFR.AMER. > 60 ML/MIN (>=60 (CALC)); SGOT/AST 23 u/l (9-36); SODIUM 138 mmol/l (137-146); TOTAL PROTEIN 7.3 g/dL (6.3-8.2)
[2020-09-30 01:03] LABS: INTERNATIONAL NORMALIZED RATIO 1.2 RATIO (0.7-1.3); PROTHROMBIN TIME 11.4 SECONDS (9.0-12.5)
[2020-09-30 01:12] LABS: MYOGLOBIN 83 ng/mL (0 - 62)
[2020-09-30 01:16] LABS: ANION GAP 9 (6-22 (CALC)); BILIRUBIN, TOTAL 0.6 mg/dL (0.0-1.4); POTASSIUM 3.2 mmol/l (3.5-5.1)
[2020-09-30 01:31] LABS: TSH, 3RD GENERATION 4.75 uIU/mL (0.47 - 4.68)
[2020-09-30 06:15] VITALS: BP 122/73
== END 2020-09-30 06:58 | disposition short-term general hospital (02) ==
LOC: ED 00:02
PROVIDERS: Emergency Medicine
DX: I48.91 Unspecified atrial fibrillation (principal); J18.9 Pneumonia, unspecified organism; R91.8 Other nonspecific abnormal finding of lung field; R79.89 Other specified abnormal findings of blood chemistry; R31.9 Hematuria, unspecified; D64.9 Anemia, unspecified; I10 Essential (primary) hypertension; E78.5 Hyperlipidemia, unspecified; J45.909 Unspecified asthma, uncomplicated; F17.210 Nicotine dependence, cigarettes, uncomplicated; Z85.118 Personal history of other malignant neoplasm of bronchus and lung; Z20.828 Contact with and (suspected) exposure to other viral communicable diseases

== ENCOUNTER 2020-10-27 14:17 | Inpatient (IN) | payer MEDICARE, MEDICAID ==
[~2020-10-27] VITALS: Ht 170.2 cm; Wt 95.0 kg
[~2020-10-27 14:17] MED LIST changes: +HYDROCHLOROT12.5 M1 PO
[2020-10-27 15:33] LABS: HEMATOCRIT 35.6 % (37.0-47.0); HEMOGLOBIN 10.5 g/dl (12.0-16.0); IMMATURE GRANULOCYTES 0.4 % (0.0-5.0); MEAN CELL VOLUME 78.2 fL CALC (80.0-100.0); MEAN CORPUSCULAR HGB 23.1 pG CALC (26.0-32.0); MEAN CORPUSCULAR HGB CONC 29.5 g/dL CAL (32.0-36.0); NEUT# 2.8 thou/uL (2.00-7.15); RED BLOOD COUNT 4.55 mill/uL (4.20-5.60); RED CELL DISTRI WIDTH 21.4 % (11.5-15.5)
[2020-10-27] MEDS ORDERED: PROAIR RES108 MCG/AC IN (16:09)
[2020-10-27] MEDS ORDERED: IBUPROFEN600 MG PO (16:10)
[2020-10-27] MEDS ORDERED: ELIQUIS2.5 MG PO (16:11)
[2020-10-27] MEDS ORDERED: ATENOLOL25 MG PO (16:11)
[2020-10-27] MEDS ORDERED: LASIX40 MG PO (16:12)
[2020-10-27] MEDS ORDERED: LISINOPRIL20 MG PO (16:12)
[2020-10-27] MEDS ORDERED: AMLODIPINE BESY10 MG PO (16:12)
[2020-10-27] MEDS ORDERED: POTASSIUM CHLO20 ME2 PO (16:13)
[2020-10-27] MEDS ORDERED: LIPITOR10 M1 PO (16:13)
[2020-10-27] MEDS ORDERED: EQL OMEPRAZOLE20 MG PO (16:14)
[2020-10-27] MEDS ORDERED: NITROGLYCERIN0.4 MG SL (16:15)
[2020-10-27 16:27] LABS: ALBUMIN 3.5 g/dL (3.2-5.0); ALKALINE PHOSPHATASE 115 u/l (38-126); ANION GAP 13 (6-22 (CALC)); BILIRUBIN, TOTAL 0.4 mg/dL (0.0-1.4); BUN 19 mg/dL (8-23); BUN/CREATININE RATIO 24 (12-20 (CALC)); CARBON DIOXIDE 23 mmol/l (22-30); CHLORIDE 102 mmol/l (95-108); CREATININE 0.8 mg/dL (0.5-1.0); GFR > 60 ML/MIN (>=60 (CALC)); GFR FOR AFR.AMER. > 60 ML/MIN (>=60 (CALC)); LIPASE 82 u/l (23-300); POTASSIUM 3.6 mmol/l (3.5-5.1); SGOT/AST 19 u/l (9-36); SODIUM 135 mmol/l (137-146); TOTAL PROTEIN 7.3 g/dL (6.3-8.2)
[2020-10-27 23:00] VITALS: BP 133/64
[2020-10-28 04:00] VITALS: BP 136/96
[2020-10-28 06:01] LABS: HEMATOCRIT 33.2 % (37.0-47.0); HEMOGLOBIN 9.8 g/dl (12.0-16.0); IMMATURE GRANULOCYTES 0.3 % (0.0-5.0); MEAN CELL VOLUME 77.4 fL CALC (80.0-100.0); MEAN CORPUSCULAR HGB 22.8 pG CALC (26.0-32.0); MEAN CORPUSCULAR HGB CONC 29.5 g/dL CAL (32.0-36.0); NEUT# 3.56 thou/uL (2.00-7.15); RED BLOOD COUNT 4.29 mill/uL (4.20-5.60); RED CELL DISTRI WIDTH 20.5 % (11.5-15.5)
[2020-10-28 06:37] LABS: ALBUMIN 3.5 g/dL (3.2-5.0); ALKALINE PHOSPHATASE 103 u/l (38-126); ANION GAP 14 (6-22 (CALC)); BILIRUBIN, TOTAL 0.5 mg/dL (0.0-1.4); BUN 17 mg/dL (8-23); BUN/CREATININE RATIO 25 (12-20 (CALC)); CARBON DIOXIDE 22 mmol/l (22-30); CHLORIDE 104 mmol/l (95-108); CREATININE 0.7 mg/dL (0.5-1.0); GFR > 60 ML/MIN (>=60 (CALC)); GFR FOR AFR.AMER. > 60 ML/MIN (>=60 (CALC)); MAGNESIUM 1.8 mg/dL (1.6-2.3); POTASSIUM 3.8 mmol/l (3.5-5.1); SGOT/AST 21 u/l (9-36); SODIUM 136 mmol/l (137-146); TOTAL PROTEIN 7.2 g/dL (6.3-8.2)
[2020-10-28 10:13] VITALS: BP 184/88
[2020-10-28 15:00] VITALS: BP 175/97
[2020-10-28 19:02] VITALS: BP 161/87
[2020-10-28 23:39] VITALS: BP 171/77
[2020-10-29 00:57] VITALS: BP 103/61
[2020-10-29 04:00] VITALS: BP 125/69
[2020-10-29 07:09] LABS: HEMATOCRIT 33.7 % (37.0-47.0); HEMOGLOBIN 9.8 g/dl (12.0-16.0); MEAN CELL VOLUME 78.6 fL CALC (80.0-100.0); MEAN CORPUSCULAR HGB 22.8 pG CALC (26.0-32.0); MEAN CORPUSCULAR HGB CONC 29.1 g/dL CAL (32.0-36.0); RED BLOOD COUNT 4.29 mill/uL (4.20-5.60)
[2020-10-29 07:12] LABS: ANION GAP 15 (6-22 (CALC)); BUN 17 mg/dL (8-23); BUN/CREATININE RATIO 26 (12-20 (CALC)); CARBON DIOXIDE 19 mmol/l (22-30); CHLORIDE 105 mmol/l (95-108); CREATININE 0.6 mg/dL (0.5-1.0); GFR > 60 ML/MIN (>=60 (CALC)); GFR FOR AFR.AMER. > 60 ML/MIN (>=60 (CALC)); MAGNESIUM 1.7 mg/dL (1.6-2.3); POTASSIUM 4.1 mmol/l (3.5-5.1); SODIUM 135 mmol/l (137-146)
[2020-10-29 08:48] VITALS: BP 149/76
[2020-10-29 10:30] VITALS: BP 139/76
[2020-10-29 12:01] LABS: URINE BILIRUBIN - DIPSTICK NEGATIVE (NEGATIVE); URINE BLOOD DIPSTICK NEGATIVE (NEGATIVE); URINE COLOR YELLOW; URINE GLUCOSE - DIPSTICK NEGATIVE (NEGATIVE); URINE KETONE NEGATIVE (NEGATIVE); URINE LEUK ESTERASE NEGATIVE (NEGATIVE); URINE NITRITE - DIPSTICK NEGATIVE (Negative); URINE PROTEIN - DIPSTICK NEGATIVE (NEG-TRACE); URINE UROBILINOGEN - DIPSTICK 0.2 E.U./dL (0.2)
[2020-10-29 15:00] VITALS: BP 131/67
[2020-10-29 18:00] VITALS: BP 151/79
[2020-10-30] VITALS: BP 113/75
[2020-10-30 04:00] VITALS: BP 98/63
[2020-10-30 06:15] LABS: HEMATOCRIT 30.4 % (37.0-47.0); HEMOGLOBIN 9.1 g/dl (12.0-16.0); IMMATURE GRANULOCYTES 0.2 % (0.0-5.0); MEAN CELL VOLUME 76.2 fL CALC (80.0-100.0); MEAN CORPUSCULAR HGB 22.8 pG CALC (26.0-32.0); MEAN CORPUSCULAR HGB CONC 29.9 g/dL CAL (32.0-36.0); NEUT# 2.25 thou/uL (2.00-7.15); RED BLOOD COUNT 3.99 mill/uL (4.20-5.60); RED CELL DISTRI WIDTH 20.3 % (11.5-15.5)
[2020-10-30 06:54] LABS: ALBUMIN 3.4 g/dL (3.2-5.0); ALKALINE PHOSPHATASE 96 u/l (38-126); ANION GAP 14 (6-22 (CALC)); BILIRUBIN, TOTAL 0.5 mg/dL (0.0-1.4); BUN 19 mg/dL (8-23); BUN/CREATININE RATIO 22 (12-20 (CALC)); CHLORIDE 102 mmol/l (95-108); CREATININE 0.9 mg/dL (0.5-1.0); GFR 60 ML/MIN (>=60 (CALC)); GFR FOR AFR.AMER. > 60 ML/MIN (>=60 (CALC)); POTASSIUM 3.9 mmol/l (3.5-5.1); SGOT/AST 21 u/l (9-36); SODIUM 135 mmol/l (137-146)
[2020-10-30 06:56] LABS: CARBON DIOXIDE 23 mmol/l (22-30)
[2020-10-30 09:14] VITALS: BP 101/71
[2020-10-30 11:35] VITALS: BP 134/78
[2020-10-30] MEDS ORDERED: ZITHROMAX250 MG PO (12:07)
[2020-10-30] MEDS ORDERED: KEFLEX500 MG PO (12:08)
[2020-10-30 16:12] VITALS: BP 102/55
== END 2020-10-30 17:23 | DRG 871 ==
LOC: ED 14:17 → ED-I 16:33 → ED 16:43 → ED-I 16:44 → MS2 16:44
PROVIDERS: Nurse Practitioner; ADMIT Internal Medicine; ATTEND Internal Medicine
PROC: 2W1RX6Z Compression of Left Lower Leg using Pressure Dressing (ICD-10-PCS; principal; 2020-10-29)
DX: A41.9 Sepsis, unspecified organism (principal); J18.9 Pneumonia, unspecified organism; E87.2 Acidosis; L97.929 Non-pressure chronic ulcer of unspecified part of left lower leg with unspecified severity; C34.92 Malignant neoplasm of unspecified part of left bronchus or lung; R65.20 Severe sepsis without septic shock; I11.0 Hypertensive heart disease with heart failure; I50.9 Heart failure, unspecified; I87.2 Venous insufficiency (chronic) (peripheral); I25.10 Atherosclerotic heart disease of native coronary artery without angina pectoris; I48.91 Unspecified atrial fibrillation; E78.5 Hyperlipidemia, unspecified; D64.9 Anemia, unspecified; K21.9 Gastro-esophageal reflux disease without esophagitis; J45.909 Unspecified asthma, uncomplicated; R32 Unspecified urinary incontinence; F17.210 Nicotine dependence, cigarettes, uncomplicated; Z85.3 Personal history of malignant neoplasm of breast; Z95.5 Presence of coronary angioplasty implant and graft; Z20.822 Contact with and (suspected) exposure to COVID-19

== ENCOUNTER 2020-11-16 13:55 | Inpatient (IN) | payer MEDICARE, MEDICAID ==
[~2020-11-16] VITALS: Ht 170.2 cm; Wt 93.4 kg
[~2020-11-16 13:55] MED LIST changes: +AMLODIPINE BESY10 MG PO; +EQL OMEPRAZOLE20 MG PO; +IBUPROFEN600 MG PO; +KEFLEX500 MG PO; +LASIX40 MG PO; +POTASSIUM CHLO20 ME2 PO; +PROAIR RES108 MCG/AC IN; +ZITHROMAX250 MG PO
--- NOTE | 2020-11-16 13:55 | NUR ---
PT ASSISTED TO ROOM BY W/C
[2020-11-16 14:43] LABS: HEMATOCRIT 33.3 % (37.0-47.0); IMMATURE GRANULOCYTES 0.4 % (0.0-5.0); MEAN CORPUSCULAR HGB 22.5 pG CALC (26.0-32.0); NEUT# 8.55 thou/uL (2.00-7.15); RED BLOOD COUNT 4.44 mill/uL (4.20-5.60); RED CELL DISTRI WIDTH 20.7 % (11.5-15.5)
--- NOTE | 2020-11-16 15:00 | NUR ---
Reassessment of patient completed. No distress noted.
[2020-11-16 15:14] LABS: INTERNATIONAL NORMALIZED RATIO 1.1 RATIO (0.7-1.3)
[2020-11-16 15:15] LABS: ALKALINE PHOSPHATASE 115 u/l (38-126); ANION GAP 16 (6-22 (CALC)); BUN 13 mg/dL (8-23); BUN/CREATININE RATIO 20 (12-20 (CALC)); CARBON DIOXIDE 19 mmol/l (22-30); CHLORIDE 104 mmol/l (95-108); CREATININE 0.7 mg/dL (0.5-1.0); GFR > 60 ML/MIN (>=60 (CALC)); GFR FOR AFR.AMER. > 60 ML/MIN (>=60 (CALC)); POTASSIUM 4.5 mmol/l (3.5-5.1); SGOT/AST 22 u/l (9-36); SODIUM 136 mmol/l (137-146); TOTAL PROTEIN 8.3 g/dL (6.3-8.2)
[2020-11-16 15:16] LABS: ALBUMIN 4.2 g/dL (3.2-5.0); BILIRUBIN, TOTAL 0.9 mg/dL (0.0-1.4)
--- NOTE | 2020-11-16 16:07 | NUR ---
PT HAS REQUESTED WE CALL HER A RIDE SHE PLANS ON GOING AMA
--- NOTE | 2020-11-16 17:10 | NUR ---
Reassessment of patient completed. No distress noted.
--- NOTE | 2020-11-16 18:12 | NUR ---
Reassessment of patient completed. No distress noted.
--- NOTE | 2020-11-16 19:19 | NUR ---
REPORT CALLED TO TITUS HEADLEY RN
[2020-11-16 20:00] VITALS: BP 134/77
--- NOTE | 2020-11-16 20:30 | NUR ---
PATIENT ADMITTED FROM ER VIA STRETCHER WITH ER STAFF IN ATTENDANCE. PATIENT IS MAX ASSIST TO STAND AND TRANSFER TO BED. PATIENT IS AWAKE AND ALERT C/O GENERALIZED PAIN EVERYWHERE. PATIENT WITH IV SITE TO LEFT HAND INTACT AND AZITHROMYCIN INFUSING ORDERED. SITE TO LEFT HAND IS HEALTHY WITH GOOD BLOOD RETURN. PATIENT WITH O2 VIA NASAL CANNULA IN PLACE AT 2LPM. TELE MONITOR IN PLACE. PATIENT ORIENTED TO ROOM AND SURROUNDINGS. INSTRUCTED ON USE OF NURSE CALL LIGHT SYSTEM, TV REMOTE AND PHONE. PATIENT PROVIDED WITH DRINKS AND SNACK. SAFETY PRECAUTIONS REINFORCED. CALL LIGHT IN REACH. WILL CONT TO MONITOR.
--- NOTE | 2020-11-16 23:47 | NUR ---
PATIENT APPEARS SLEEPING AT THIS TIME WITH O2 VIA NASAL CANNULA IN PLACE. TELE MONITOR IN PLACE. SALINE LOCK INTACT TO LEFT HAND. CALL LIGHT IN REACHW. WILL CONT TO MONITOR.
[2020-11-17] VITALS: BP 139/80
--- NOTE | 2020-11-17 01:57 | NUR ---
PATIENT FOUND LEANING FORWARD OVER THE TOP RAIL WITH O2 OFF AND LEFT LE UNNA BOOT PULLED BACK. PATIENT ASSISTED BACK INTO BED. O2 REAPPLIED AT 2LPM. IVF NS PATENT AND INFUSING VIA LEFT HAND SITE AT 50CC/HR. SITE REMAINS HEALTHY AT THIS TIME. LEFT LE UNNA BOOT PULLED BACK INTO PLACE. TELE MONITOR IN PLACE. SAFETY PRECAUTIONS REINFORCED. BED ALARM IN PLACE FOR PATIENT SAFETY. CALL LIGHT IN REACH. WILL CONT TO MONITOR.
[2020-11-17 04:00] VITALS: BP 154/85
--- NOTE | 2020-11-17 04:28 | NUR ---
PATIENT RESTING IN BED-IV FOUND DISLODGED IN BED. PATIENT INCONT OF LARGE AMT OF URINE. PATIENT MAX ASSIST OOB TO BSC TO ATTEMPT AT VOIDING AND COLLECTING URINE SPEC. PATIENT WAS NOT ABLE TO VOID AT THIS TIME. LINENS WERE CHANGED AND PATIENT MAX ASSIST BACK INTO BED. PATIENT CONT TO PICK AND PULL DOWN HER UNNA BOOTS ON BOTH LE. ATTEMPT TO PULL THEM BACK UP. PATIENT WILL NOT LAY BACK IN THE BED. ALWAYS WANTS TO LEAN FORWARD TO THE RIGHT SIDE. WANTS TO ROCK BACK AND FORTH. O2 REAPPLIED AT 2LPM. TELE MONITOR REATTACHED AND FUNCTIONING CORRECTLY AT THIS TIME./ NEW IV SITE STARTED TO LEFT FORARM-#22 WITH GOOD BLOOD RETURN. IVF NS PATENT AND INFUSING AT 50CC/HR AT THIS TIME. PATIENT PROVIDED WITH WARM BLANKETS. CONT TO LEAN FORWARD AND TO THE RIGHT. SAFETY PRECAUTIONS REINFORCED. BED ALARM IN PLACE FOR PATIENT SAFETY. CALL LIGHT IN REACH. WILL CONT TO MONITOR.
[2020-11-17 05:06] LABS: HEMATOCRIT 31.1 % (37.0-47.0); HEMOGLOBIN 9.3 g/dl (12.0-16.0); IMMATURE GRANULOCYTES 0.5 % (0.0-5.0); MEAN CORPUSCULAR HGB 21.8 pG CALC (26.0-32.0); MEAN CORPUSCULAR HGB CONC 29.9 g/dL CAL (32.0-36.0); NEUT# 7.21 thou/uL (2.00-7.15); RED BLOOD COUNT 4.26 mill/uL (4.20-5.60)
[2020-11-17 05:24] LABS: ANION GAP 14 (6-22 (CALC)); BUN 13 mg/dL (8-23); BUN/CREATININE RATIO 22 (12-20 (CALC)); CARBON DIOXIDE 22 mmol/l (22-30); CHLORIDE 104 mmol/l (95-108); CREATININE 0.6 mg/dL (0.5-1.0); GFR > 60 ML/MIN (>=60 (CALC)); GFR FOR AFR.AMER. > 60 ML/MIN (>=60 (CALC)); POTASSIUM 4.2 mmol/l (3.5-5.1); SODIUM 135 mmol/l (137-146)
--- NOTE | 2020-11-17 06:25 | NUR ---
PATIENT RESTING IN BED-PATIENT CONT TO TEAR AT HER BLE DRESSINGS. STATES THAT THEY ARE TOO TIGHT AND SHE WANTS THEM OFF. TELE MONITOR IN PLACE. IV SITE TO LEFT FOREARM INTACT WITH NS AT 50CC/HR. O2 VIA NASAL CANNULA IN PLACE AT 2LPM. ATTEMPT TO EDUCATE PAIMARQUITA REGUARDING LEAVING HER DRESSINGS TO BOTH LEGS ALONE WITH NO SUCCESS. CALL LIGHT IN REACH. WILL CONT TO MONITOR.
[2020-11-17 07:15] VITALS: BP 90/64
--- NOTE | 2020-11-17 07:15 | NUR ---
UPON ENTERING ROOM, PT REMOVING COMPRESSION DRESSINGS. A&O. PT REQUESTING TO REMOVE ENTIRELY. SEE CHART FOR PHOTOS, SKIN TEARS NOTED. WEAK PEDAL PULSES. PT COOPERATIVE AND ABLE TO USE VENTOLIN INHALER X2 PUFFS WITH NO DIFFICULTY. O2 VIA NC @2L IN PLACE. POLE SHAVER IN PLACE. IV HEALTHY AND INTACT, IVF WITH NO DIFFICULTY. ASSESSMENT COMPLETED. DISCUSSED POC. BED ALARM PLACED FOR SAFETY. CALL LIGHT WITHIN REACH.
[2020-11-17] MEDS ORDERED: OXYCODO-APAP1 TA2 PO (07:19)
[2020-11-17] MEDS ORDERED: HYDROXYZ HCL25 MG PO (07:19)
[2020-11-17] MEDS ORDERED: MUCINEX600 MG PO (07:19)
[2020-11-17] MEDS ORDERED: CETIRIZINE10 MG PO (07:20)
[2020-11-17] MEDS ORDERED: OMEPRAZOLE DR40 MG PO (07:20)
[2020-11-17] MEDS ORDERED: ATORVASTATIN CA40 MG PO (07:22)
[2020-11-17] MEDS ORDERED: LASIX 40 MG TAB40 MG PO (07:23)
[2020-11-17] MEDS ORDERED: ASPIRIN81 MG PO (07:23)
[2020-11-17] MEDS ORDERED: ENTRESTO 24-261 TAB PO (07:23)
[2020-11-17] MEDS ORDERED: ELIQUIS5 MG PO (07:23)
[2020-11-17] MEDS ORDERED: TOPROL XL25 M1 PO (07:24)
--- NOTE | 2020-11-17 09:25 | NUR ---
DR MARIN AND Bhavna CANTU APRN AT BEDSIDE
[2020-11-17 11:05] VITALS: BP 101/65
--- NOTE | 2020-11-17 11:35 | NUR ---
RIGHT AND LEFT LOWER LEG WOUND X 2 LOCATED ON CALFS AND IS CIRCULAR AND FLAT MODERATE AMOUNT OF BROWN PURALENT SERROUSANGEOUS DRAINAGE IN COLOR AND FOUL SMELLING. AREA'S CLEANSED WITH NORMAL SALINE AND DRESSED WITH NON-ADHERANT TELFA PADS AND ABD PADS AND WRAPPED IN [place] FOR COMPRESSION. ONE FLAT SKIN TEAR NOTED ON UPPER RIGHT THIGH AT THIS TIME AND WAS CLEANSED WITH SALINE AND TELFA PAD APPLIED AND TEGADERM APPLIED. WOUND CARE CONSULTED AND SEE CHART FOR PHOTO.
--- NOTE | 2020-11-17 12:02 | NUR ---
PT SLEEPING IN BED. PT AWAKENED TO TAKE VENTOLIN INHALER, PT COOPERATIVE AND USED INHALER PROPERLY. CALL LIGHT WITHIN REACH.
[2020-11-17 15:00] VITALS: BP 97/68
--- NOTE | 2020-11-17 16:16 | NUR ---
PT SITTING IN BED EATING A COOKIE. NO NEEDS AT THIS TIME. CALL LIGHT WITHIN REACH.
[2020-11-17 19:00] VITALS: BP 111/77
--- NOTE | 2020-11-17 19:45 | NUR ---
PT MEDICATED ORDERS PROVIDE. PT IS SITTING ON THE SIDE OF THE BED. NO S/O DISTRESS NOTED. IV ANTIBIOTIC THERAPY ADMINISTERED AT THIS TIME. CALL LIGHT AT SIDE AND BED ALARM PORTABLE IS ON PT FOR SAFETY PRECAUSIONS.
--- NOTE | 2020-11-17 20:00 | NUR ---
PT MEDICATED ORDERS PROVIDE. BED ALARM PLACED ON PT. PT SITTING ON THE SIDE OF THE BED GRUNTING. I ASKED HER IF SHE IS IN ANY PAIN, SHE REPLIED "NO, I'M COLD." BLANKET ADDED AROUND PT'S BACK FOR WARMTH. I ASKED IF SHE WANTED TO LAY IN BED AND I COULD TUCK HER IN BETTER FOR WARMTH, REFUSED STATING SHE WANTS TO BE UP, NOT IN BED.
[2020-11-18] VITALS: BP 150/77
--- NOTE | 2020-11-18 | NUR ---
ASSISTED PT BACK INTO BED, SHE HAD URINATED INCONTINENT/CLEANED OF URINE. SHE HAD REMOVED RLE DRESSING AND COPIUS AMOUNTS OF CLEAR LIQUID DRAINAGE WAS PUDDLED ON THE FLOOR AROUND HER FEET COMING FROM R.LEG WOUND. DRESSING PLACED TO BLE. TELFA, ABD, KURLEX AND RONALD FOR COMPRESSION DRESSING. I INSTRUCTED HER TO LEAVE THE DRESSINGS IN PLACE, VERBALIZED UNDERSTANDING. POSITIONED IN THE BED FOR COMFORT.
[2020-11-18 03:15] VITALS: BP 110/56
[2020-11-18 05:31] LABS: HEMOGLOBIN 8.4 g/dl (12.0-16.0); IMMATURE GRANULOCYTES 0.6 % (0.0-5.0); MEAN CELL VOLUME 71.6 fL CALC (80.0-100.0); MEAN CORPUSCULAR HGB 21.5 pG CALC (26.0-32.0); NEUT# 6.58 thou/uL (2.00-7.15); RED BLOOD COUNT 3.91 mill/uL (4.20-5.60); RED CELL DISTRI WIDTH 20.3 % (11.5-15.5)
--- NOTE | 2020-11-18 05:35 | NUR ---
PT HEARD YELLING FOR HELP, UPON ENTERING ROOM, SHE WAS LAYING IN BED SAYING SHE NEEDED HELP. PT REPORTED THAT SHE NEEDED CLEANED UP. CALL LIGHT WAS W/IN REACH UNDER HER RIGHT ARM. PT REMINDED OF CALL LIGHT USAGE, VERBALIZED UNDERSTANDING. SHE WAS CLEANED OF INCONTINENT URINE AT THIS TIME AND PRVOIDED MARTA-CARE. REPOSITIONED IN THE BED AND REMINDED OF CALL LIGHT. DENIES ANY FURTHER NEEDS OF ASSISTANCE AT THIS TIME.
[2020-11-18 06:09] LABS: ALKALINE PHOSPHATASE 97 u/l (38-126); ANION GAP 14 (6-22 (CALC)); BILIRUBIN, TOTAL 0.8 mg/dL (0.0-1.4); BUN 17 mg/dL (8-23); BUN/CREATININE RATIO 25 (12-20 (CALC)); CARBON DIOXIDE 20 mmol/l (22-30); CHLORIDE 106 mmol/l (95-108); CREATININE 0.7 mg/dL (0.5-1.0); GFR > 60 ML/MIN (>=60 (CALC)); GFR FOR AFR.AMER. > 60 ML/MIN (>=60 (CALC)); POTASSIUM 4.2 mmol/l (3.5-5.1); SGOT/AST 17 u/l (9-36); SODIUM 135 mmol/l (137-146)
--- NOTE | 2020-11-18 06:10 | NUR ---
ASSISTED PT INTO RECLINER. VERY WEAK NEEDING 2X MAX ASSIST.
[2020-11-18 06:13] LABS: ALBUMIN 3.3 g/dL (3.2-5.0)
--- NOTE | 2020-11-18 07:10 | NUR ---
PT REPORT RECEIVED FROM NIGHT NURSE, ARACELI MCKEON.
[2020-11-18 08:15] VITALS: BP 115/67
--- NOTE | 2020-11-18 08:15 | NUR ---
PT WAS FOUND SITTING IN BEDSIDE CHAIR;PT IS ALERT AND ORIENTED X3, BUT HAS SLIGHT CONFUSION;VS AND ASSESSMENT WERE COMPLETED;VS WERE WITHIN NORMAL LIMITS;PT IS ON O2 VIA NC @2L WITH SATS OF 97%;LUNG SOUNDS ARE CLEAR AND DIMINISHED IN THE LOWER LOBES;RESPIRATIONS ARE EVEN AND NON-LABORED;TELE IS IN PLACE READING A-FIB @87BPM;PT HAS DRESSINGS IN PLACE ON HER LOWER LEGS, UNOBSERVED AT THIS TIME;PT DID HAVE 1+ EDEMA IN HER FEET BILATERALLY AND WEAK PEDAL PULSES;#22G IV IN LEFT FOREARM WITH NS RUNNING @25ML/HR;IV SITE IS FREE OF COMPLICATIONS AT THIS TIME;PT HAS NO REPORTS OF PAIN;SAFETY PRECAUTIONS IN PLACE;CALL LIGHT WITHIN REACH;BED IN LOWEST POSITION;WILL CONTINUE TO MONITOR.
[2020-11-18 11:00] VITALS: BP 93/53
--- NOTE | 2020-11-18 11:14 | NUR ---
Patient is screened for PT intervention and may benefit from consult if medical agrees
--- NOTE | 2020-11-18 12:00 | NUR ---
PT WAS FOUND RESTING IN BED;PT REPORTS ABDOMINAL PAIN /;PT WAS GIVEN PERCOCET 325MG;TELE IN PLACE READING A-FIB @74BPM;PT IS ON O2 @2L VIA NC;SAFETY PRECAUTIONS IN PLACE;CALL LIGHT WITHIN REACH;BED IN LOWEST POSITION;WILL CONTINUE TO MONITOR.
--- NOTE | 2020-11-18 13:43 | NUR ---
NEW #22G STARTED IN LEFT HAND, SITE APPEARS HAELTHY AND PATENT. OLD #22G REMOVED FROM LFA WITH CATHATER STILL INTACT.
[2020-11-18 15:38] VITALS: BP 92/61
--- NOTE | 2020-11-18 15:44 | NUR ---
PT IS SITTING UP IN BED MOANING;PT DENIES PAIN WHEN ASKED;REASSESSMENT OF BP RESULTING IN 92/61 HR74.
--- NOTE | 2020-11-18 16:15 | NUR ---
PT WAS FOUND SITTING UP IN BED;PT REPORTS NO PAIN AT THIS TIME;TELE IS IN PLACE READING SA @88BPM;#22G IV IN LEFT HAND IS PATENT AND FREE OF COMPLICATIONS;SAFETY PRECAUTIONS IN PLACE;CALL LIGHT LEFT WITHIN REACH;BED IN LOWEST POSITION;BED ALARM ON;WILL CONTINUE TO MONITOR.
[2020-11-18 19:06] VITALS: BP 95/70
--- NOTE | 2020-11-18 19:20 | NUR ---
PHYSICAL ASSESMENT COMPLETE. PT CURRENTLY DENIES PAIN OR DISCOMFORT. SCHEDULED MEDICATIONS AND PRN MEDICATION ADMINISTERED, SEE E-MAR. PT DENIES ANY NEEDS AT THIS TIME. PLAN OF CARE REVIEWED, PT DENIES QUESTIONS, VERBALIZES UNDERSTANDING. ITEMS WITHIN REACH, BED LOCKED IN LOW POSITION W/ BEDRAILS UP X2. CALL CADENA WITHIN REACH, AGREES TO CALL PRN.
--- NOTE | 2020-11-18 19:42 | NUR ---
PATIENT SITTING UP IN RECLINER AT THIS TIME. PATIENT IS AWAKE ALERT AND ASKING FOR CIGARETTE. PATIENT ADVISED THAT SHE IS IN THE HOSPITAL AND SMOKING IS NOT ALLOWED. PATIENT WITH BP-95/70 AND LISINOPRIL IS HELD. PATIENT WITH TELE MONITOR IN PLACE. PATIENT WITH IV SITE TO LEFT HAND WITH IVF NS PATENT AND INFUSING AT 50CC/HR. SITE IS HEALTHY AT THIS TIME. ROCEPHIN HUNG ORDERED. BLE DRESSINGS ARE CDI AT THIS TIME-SECURED WITH RONALD WRAPS. O2 SAT AT THIS TIME IS 96 ON RA. SAFETY PRECAUTIONS REINFORCED. SAFETY ALARM ATTATCHED TO PATIENT GOWN FOR SAFETY. CALL LIGHT IN REACH. WILL CONT TO MONITOR.
--- NOTE | 2020-11-18 22:37 | NUR ---
PATIENT WENT TO RADIOLOGY AND BACK FOR CT OF THORAX. PATIENT ASSISTED BACK TO BED. IVF NS PATENT AND INFUSING VIA LEFT HAND SITE. SAFETY PRECAUTIONS REINFORCED. BED ALARM IN PLACE FOR PATIENT SAFETY. CALL LIGHT IN REACH. WILL CONT TO MONITOR.
--- NOTE | 2020-11-18 23:20 | NUR ---
PATIENT FOUNE WITH IV SITE TO LEFT HAND OUT. NEW IV SITE TO LEFT WRIST STARTED #24 WITH GOOD BLOOD RETURN. IVF NS PATENT AND INFUSING AT 50CC/HR. TELE MONITOR IN PLACE. CALL LIGHT IN REACH. WILL CONT TO MONITOR.
[2020-11-19] VITALS: BP 113/73
--- NOTE | 2020-11-19 00:30 | NUR ---
PATIENT RESTING IN BED-C/O BLE AND BACK PAIN-9/10 ON PAIN SCALE. MEDICATED WITH PERCOCET 10/325MG PO. IVF NS PATENT AND INFUSING VIA LEFT WRIST IV SITE AT 50CC/HR. TELE MONITOR IN PLACE. ENCOURAGE PATIENT TO LEAVE HER DRESSINGS TO BLE ALONE. WANTS TO PICK AT THEM. BED ALARM IN PLACE FOR PATIENT SAFETY. SAFETY PRECAUTIONS REINFORCED. CALL LIGHT IN REACH. WILL CONT TO MONITOR.
[2020-11-19 03:58] VITALS: BP 120/77
--- NOTE | 2020-11-19 04:45 | NUR ---
PATIENT SITTING UP ON THE SIDE OF THE BED-MEDICATED FOR HTN-170/97, HR-92. APRESOLINE 10MG IVP VIA LEFT FOREARM IV SITE. SITE REMAINS HEALTHY. VOIDED 1000CC OF RY URINE. CONT TO HAVE GENERALIZED EDEMA. SAFETY PRECAUTIONS REINFORCED. CALL LIGHT IN REACH. WILL CONT TO MONITOR.
--- NOTE | 2020-11-19 05:19 | NUR ---
PATIENT STILL BEING UNCOOPERATIVE. FINALLY WAS ABLE TO GET PATIENT OOB TO THE RECLINER. PATIENT INCONT OF LARGE AMT OF RY URINE. PATIENT IS STILL REFUSING TO HAVE TELE REAPPLIED. LINENS WERE CHANGED. IVF NS PATENT AND INFUSING VIA LEFT WRIST SITE. PATIENT ALSO REMOVED DRESSING FROM LLE. REFUSING TO HAVE IT REDRESSED. DRESSING STILL IN PLACE TO RLE. CALL LIGHT IN REACH. WILL CONT TO MONITOR.
--- NOTE | 2020-11-19 07:00 | NUR ---
PT REPORT RECEIVED FROM NIGHT NURSERIGO.
[2020-11-19 08:03] VITALS: BP 141/68
--- NOTE | 2020-11-19 08:04 | NUR ---
PT WAS FOUND SITTING UP IN THE BEDSIDE CHAIR;PT IS ALERT AND ORIENTED WITH SOME OCCASIONAL CONFUSION NOTED;VS AND ASSESSMENT WERE COMPLETED;VS WERE WITHIN NORMAL LIMITS;PT REPORTS NO PAIN AT THIS TIME;PT HAS SEVERAL SMALL ULCERATIVE WOUNDS LOCATED ON LL BILATERALLY;PT HAS REMOVED MOST OF HER DRESSINGS THAT WERE IN PLACE; IS ON CONSULT FOR TODAY TO PERFORM THE NEEDED WOUND CARE;#24G IV IN LEFT WRIST IS RUNNING NS @50ML/HR;SITE IS PATENT AND FREE OF COMPLICATIONS;SAFETY PRECAUTIONS ARE IN PLACE;CALL LIGHT WITHIN REACH;BED IN LOWEST POSITION;WILL CONTINUE TO MONITOR.
[2020-11-19 09:22] LABS: HEMATOCRIT 26.6 % (37.0-47.0); HEMOGLOBIN 7.9 g/dl (12.0-16.0); IMMATURE GRANULOCYTES 0.5 % (0.0-5.0); MEAN CELL VOLUME 73.5 fL CALC (80.0-100.0); MEAN CORPUSCULAR HGB 21.8 pG CALC (26.0-32.0); MEAN CORPUSCULAR HGB CONC 29.7 g/dL CAL (32.0-36.0); NEUT# 4.29 thou/uL (2.00-7.15); RED BLOOD COUNT 3.62 mill/uL (4.20-5.60); RED CELL DISTRI WIDTH 20.3 % (11.5-15.5)
[2020-11-19 09:41] LABS: ANION GAP 16 (6-22 (CALC)); BUN 19 mg/dL (8-23); BUN/CREATININE RATIO 25 (12-20 (CALC)); CARBON DIOXIDE 20 mmol/l (22-30); CHLORIDE 105 mmol/l (95-108); CREATININE 0.8 mg/dL (0.5-1.0); GFR > 60 ML/MIN (>=60 (CALC)); GFR FOR AFR.AMER. > 60 ML/MIN (>=60 (CALC)); POTASSIUM 3.8 mmol/l (3.5-5.1); SODIUM 137 mmol/l (137-146)
[2020-11-19] MEDS ORDERED: DOXYCYCL HYC100 MG PO (10:35)
[2020-11-19] MEDS ORDERED: NORVASC10 M1 PO (10:36)
[2020-11-19] MEDS ORDERED: COZAAR50 MG PO (10:37)
[2020-11-19 10:40] VITALS: BP 101/62
--- NOTE | 2020-11-19 12:15 | NUR ---
PT WAS FOUND SITTING IN BEDSIDE CHAIR EATING LUNCH;PT REPORTS ABDOMINAL PAIN 9/10;PERCOCET 325MG WAS GIVEN; WAS IN THIS AM AND EVALUATED THE WOUNDS AND PLACED DRESSING ON THE LOWER RIGHT LEG;SHE WILL RETURN TO DO THE SAME ON THE LEFT LEG LATER TODAY AFTER SHE GETS MORE SUPPLIES FROM HER OFFICE;SAFETY PRECAUTIONS IN PLACE;CALL LIGHT WITHIN REACH;WILL CONTINUE TO MONITOR.
--- NOTE | 2020-11-19 12:20 | NUR ---
PT WAS FOUND SLEEPING IN BED;AROUSED TO VERBAL STIMULI;PT REPORTS NO PAIN;TELE IN PLACE READING SA @77BPM;HALL CATHETER IS DRAINING YELLOW URINE;SAFETY PRECAUTIONS IN PLACE;CALL LIGHT WITHIN REACH;BED IN LOWEST POSITION;WILL CONTINUE TO MONITOR.
--- NOTE | 2020-11-19 13:40 | NUR ---
, WOUND CARE IS AT BEDSIDE.
--- NOTE | 2020-11-19 15:58 | NUR ---
Discharge instructions given. Discharged in stable condition via Wheelchair to Home with family. All belongings sent with pt. PT LEFT VIA WHEELCHAIR TO LOBBY IN STABLE CONDITION ACCOMPANIED BY RIDER;ALL BELONGINGS SENT WITH PT;PT REFUSED TO SIGN DISCHARGE PAPER;WITNESSED BY 2 NURSES;NOTIFIED FAMILY THAT PT IS TO FOLLOW UP WITH FOR CONTINUING WOUND CARE WITHIN THE NEXT WEEK;DISCHARGE INSTRUCTIONS GIVEN TO FAMILY.
== END 2020-11-19 15:24 | DRG 194 ==
LOC: ED 13:55 → MS2 16:25 → ED-I 16:32 → ED 16:32 → MS2 11-19 15:24
PROVIDERS: Nurse Practitioner; Nurse Practitioner Family; Student in an Organized Health Care Education/Training Program; ADMIT Internal Medicine; ATTEND Internal Medicine
DX: J18.9 Pneumonia, unspecified organism (principal); C34.92 Malignant neoplasm of unspecified part of left bronchus or lung; L97.929 Non-pressure chronic ulcer of unspecified part of left lower leg with unspecified severity; L97.919 Non-pressure chronic ulcer of unspecified part of right lower leg with unspecified severity; R09.02 Hypoxemia; I11.0 Hypertensive heart disease with heart failure; I50.9 Heart failure, unspecified; I87.8 Other specified disorders of veins; I48.91 Unspecified atrial fibrillation; J45.909 Unspecified asthma, uncomplicated; K21.9 Gastro-esophageal reflux disease without esophagitis; E78.5 Hyperlipidemia, unspecified; F17.200 Nicotine dependence, unspecified, uncomplicated; Z95.5 Presence of coronary angioplasty implant and graft; Z87.01 Personal history of pneumonia (recurrent); Z86.16 Personal history of COVID-19; Z20.822 Contact with and (suspected) exposure to COVID-19
CPT/HCPCS: J1756; Q9967

== ENCOUNTER 2020-11-22 16:05 | Observation (INO) | payer MEDICARE, MEDICAID ==
[~2020-11-22] VITALS: Ht 170.2 cm; Wt 95.3 kg
[~2020-11-22 16:05] MED LIST changes: +ATORVASTATIN CA40 MG PO; +CETIRIZINE10 MG PO; +COZAAR50 MG PO; +ELIQUIS5 MG PO; +ENTRESTO 24-261 TAB PO; +HYDROXYZ HCL25 MG PO; +MUCINEX600 MG PO; +TOPROL XL25 M1 PO
[2020-11-22 17:29] LABS: HEMATOCRIT 29.3 % (37.0-47.0); HEMOGLOBIN 8.5 g/dl (12.0-16.0); IMMATURE GRANULOCYTES 0.4 % (0.0-5.0); MEAN CELL VOLUME 75.3 fL CALC (80.0-100.0); MEAN CORPUSCULAR HGB 21.9 pG CALC (26.0-32.0); NEUT# 4.39 thou/uL (2.00-7.15); RED BLOOD COUNT 3.89 mill/uL (4.20-5.60); RED CELL DISTRI WIDTH 21.6 % (11.5-15.5)
[2020-11-22 17:45] LABS: ALBUMIN 3.8 g/dL (3.2-5.0); ALKALINE PHOSPHATASE 117 u/l (38-126); ANION GAP 14 (6-22 (CALC)); BILIRUBIN, TOTAL 0.7 mg/dL (0.0-1.4); BUN 20 mg/dL (8-23); BUN/CREATININE RATIO 23 (12-20 (CALC)); CARBON DIOXIDE 21 mmol/l (22-30); CHLORIDE 106 mmol/l (95-108); CREATININE 0.9 mg/dL (0.5-1.0); ETHYL ALCOHOL 0 mg/dl (0-30); GFR 60 ML/MIN (>=60 (CALC)); GFR FOR AFR.AMER. > 60 ML/MIN (>=60 (CALC)); LIPASE 36 u/l (23-300); SGOT/AST 22 u/l (9-36); SODIUM 138 mmol/l (137-146); TOTAL PROTEIN 7.8 g/dL (6.3-8.2)
[2020-11-22 17:46] LABS: MAGNESIUM 2.3 mg/dL (1.6-2.3)
[2020-11-22 17:47] LABS: INTERNATIONAL NORMALIZED RATIO 1.3 RATIO (0.7-1.3); PROTHROMBIN TIME 12.4 SECONDS (9.0-12.5)
[2020-11-23 01:45] VITALS: BP 139/81
[2020-11-23 05:57] VITALS: BP 107/61
[2020-11-23 06:06] LABS: HEMATOCRIT 30.1 % (37.0-47.0); HEMOGLOBIN 8.8 g/dl (12.0-16.0); IMMATURE GRANULOCYTES 0.5 % (0.0-5.0); MEAN CELL VOLUME 74.5 fL CALC (80.0-100.0); MEAN CORPUSCULAR HGB 21.8 pG CALC (26.0-32.0); MEAN CORPUSCULAR HGB CONC 29.2 g/dL CAL (32.0-36.0); NEUT# 5.06 thou/uL (2.00-7.15); RED BLOOD COUNT 4.04 mill/uL (4.20-5.60); RED CELL DISTRI WIDTH 21.5 % (11.5-15.5)
[2020-11-23 06:26] LABS: ALBUMIN 3.5 g/dL (3.2-5.0); ALKALINE PHOSPHATASE 114 u/l (38-126); ANION GAP 16 (6-22 (CALC)); BILIRUBIN, TOTAL 0.9 mg/dL (0.0-1.4); BUN 18 mg/dL (8-23); BUN/CREATININE RATIO 23 (12-20 (CALC)); CARBON DIOXIDE 20 mmol/l (22-30); CHLORIDE 107 mmol/l (95-108); CREATININE 0.8 mg/dL (0.5-1.0); GFR > 60 ML/MIN (>=60 (CALC)); GFR FOR AFR.AMER. > 60 ML/MIN (>=60 (CALC)); POTASSIUM 4.3 mmol/l (3.5-5.1); SGOT/AST 20 u/l (9-36); SODIUM 138 mmol/l (137-146); TOTAL PROTEIN 7.3 g/dL (6.3-8.2)
[2020-11-23 08:00] VITALS: BP 124/81
[2020-11-23 12:00] VITALS: BP 134/67
[2020-11-23 16:54] VITALS: BP 113/79
[2020-11-23 20:00] VITALS: BP 127/84
[2020-11-24] VITALS: BP 150/98
[2020-11-24 04:00] VITALS: BP 152/86
[2020-11-24 08:37] VITALS: BP 138/72
[2020-11-24 11:04] VITALS: BP 143/91
[2020-11-24] MEDS ORDERED: K-TAB20 MEQ PO (12:44)
[2020-11-24] MEDS ORDERED: NITROGLYCER0.2 MG/H1 SL (12:47)
[2020-11-24] MEDS ORDERED: HYDROXYZ HCL25 MG PO (12:48)
[2020-11-24] MEDS ORDERED: MUCINEX600 MG PO (12:49)
[2020-11-24] MEDS ORDERED: PERCOCET 10/31 COMBO PO (12:50)
[2020-11-24] MEDS ORDERED: CETIRIZINE10 MG PO (12:51)
[2020-11-24] MEDS ORDERED: LIPITOR40 M1 PO (12:53)
[2020-11-24] MEDS ORDERED: LASIX 40 MG TAB40 MG PO (12:55)
[2020-11-24] MEDS ORDERED: ELIQUIS5 MG PO (12:55)
[2020-11-24] MEDS ORDERED: TOPROL XL25 M1 PO (12:56)
[2020-11-24] MEDS ORDERED: AMLODIPINE BESY10 MG PO (12:57)
[2020-11-24] MEDS ORDERED: COZAAR50 MG PO (12:59)
[2020-11-24] MEDS ORDERED: DOXYCYCL HYC100 MG PO (12:59)
[2020-11-24 16:09] VITALS: BP 107/72
[2020-11-24 19:00] VITALS: BP 117/73
== END 2020-11-24 19:40 | disposition home health service (06) ==
LOC: ED 16:05 → ED-I 20:15 → ED 20:32 → ED-I 20:33 → MS2 11-23 14:27
PROVIDERS: ADMIT Internal Medicine; ATTEND Internal Medicine
DX: T40.2X1A Poisoning by other opioids, accidental (unintentional), initial encounter (principal); R41.0 Disorientation, unspecified; I11.0 Hypertensive heart disease with heart failure; I50.22 Chronic systolic (congestive) heart failure; C34.90 Malignant neoplasm of unspecified part of unspecified bronchus or lung; M25.569 Pain in unspecified knee; I25.10 Atherosclerotic heart disease of native coronary artery without angina pectoris; I48.91 Unspecified atrial fibrillation; E78.5 Hyperlipidemia, unspecified; J45.909 Unspecified asthma, uncomplicated; K21.9 Gastro-esophageal reflux disease without esophagitis; F17.200 Nicotine dependence, unspecified, uncomplicated; Z95.5 Presence of coronary angioplasty implant and graft; Z87.01 Personal history of pneumonia (recurrent); Z20.822 Contact with and (suspected) exposure to COVID-19

== ENCOUNTER 2020-12-05 10:29 | Emergency (ER) | payer MEDICARE, MEDICAID ==
[~2020-12-05] VITALS: Ht 170.2 cm; Wt 70.0 kg
[~2020-12-05 10:29] MED LIST changes: +LIPITOR40 M1 PO; +NITROGLYCER0.2 MG/H1 SL
[2020-12-05 11:52] LABS: HEMOGLOBIN 10.4 g/dl (12.0-16.0); IMMATURE GRANULOCYTES 0.4 % (0.0-5.0); MEAN CORPUSCULAR HGB 21.3 pG CALC (26.0-32.0); MEAN CORPUSCULAR HGB CONC 28.8 g/dL CAL (32.0-36.0); NEUT# 3.44 thou/uL (2.00-7.15); RED BLOOD COUNT 4.88 mill/uL (4.20-5.60); RED CELL DISTRI WIDTH 23.3 % (11.5-15.5)
[2020-12-05 11:54] LABS: HEMATOCRIT 36.1 % (37.0-47.0)
[2020-12-05 12:02] LABS: ALBUMIN 3.8 g/dL (3.2-5.0); ALKALINE PHOSPHATASE 107 u/l (38-126); ANION GAP 14 (6-22 (CALC)); BILIRUBIN, TOTAL 1.2 mg/dL (0.0-1.4); BUN 17 mg/dL (8-23); BUN/CREATININE RATIO 22 (12-20 (CALC)); CARBON DIOXIDE 23 mmol/l (22-30); CHLORIDE 107 mmol/l (95-108); CREATININE 0.8 mg/dL (0.5-1.0); GFR > 60 ML/MIN (>=60 (CALC)); GFR FOR AFR.AMER. > 60 ML/MIN (>=60 (CALC)); POTASSIUM 4.3 mmol/l (3.5-5.1); SGOT/AST 26 u/l (9-36); SODIUM 140 mmol/l (137-146); TOTAL PROTEIN 8.1 g/dL (6.3-8.2)
[2020-12-05 12:14] LABS: MYOGLOBIN 88 ng/mL (0 - 62)
[2020-12-05] MEDS ORDERED: ALBUTEROL SUL0.083 % IN (16:09)
[2020-12-05] MEDS ORDERED: LASIX 40 MG TAB40 MG PO ×2 (16:09→16:15)
[2020-12-05] MEDS ORDERED: NORVASC5 M1 PO (16:10)
[2020-12-05] MEDS ORDERED: PROAIR HFA108 MCG/AC IN (16:10)
[2020-12-05] MEDS ORDERED: POTASSIUM CHLO20 ME2 PO (16:11)
[2020-12-05] MEDS ORDERED: HYDROXYZ HCL25 MG PO (16:11)
[2020-12-05] MEDS ORDERED: OXYCODO-APAP1 TA2 PO (16:12)
[2020-12-05] MEDS ORDERED: MUCINEX600 MG PO (16:12)
[2020-12-05] MEDS ORDERED: CETIRIZINE10 MG PO (16:13)
[2020-12-05] MEDS ORDERED: OMEPRAZOLE DR40 MG PO (16:13)
[2020-12-05] MEDS ORDERED: ATORVASTATIN CA40 MG PO (16:14)
[2020-12-05] MEDS ORDERED: ASPIRIN 81 LOW81 MG PO (16:14)
[2020-12-05] MEDS ORDERED: ELIQUIS2.5 MG PO (16:15)
[2020-12-05] MEDS ORDERED: KAPSPARGO SPRIN25 MG PO (16:16)
[2020-12-05 20:07] VITALS: BP 130/80
== END 2020-12-05 20:04 | disposition hospice, inpatient (51) ==
LOC: ED 10:29
PROVIDERS: Emergency Medicine
DX: C34.92 Malignant neoplasm of unspecified part of left bronchus or lung (principal); J18.9 Pneumonia, unspecified organism; F11.20 Opioid dependence, uncomplicated; I50.9 Heart failure, unspecified; J44.9 Chronic obstructive pulmonary disease, unspecified; F17.200 Nicotine dependence, unspecified, uncomplicated; Z51.5 Encounter for palliative care; Z87.01 Personal history of pneumonia (recurrent); Z20.822 Contact with and (suspected) exposure to COVID-19

== ENCOUNTER 2021-02-08 12:19 | Emergency (ER) | payer OTHER, MEDICARE, MEDICAID ==
[~2021-02-08 12:19] MED LIST changes: +ALBUTEROL SUL0.083 % IN; +ASPIRIN 81 LOW81 MG PO; +KAPSPARGO SPRIN25 MG PO; +PROAIR HFA108 MCG/AC IN
[2021-02-08 12:45] LABS: HEMATOCRIT 34.7 % (37.0-47.0); HEMOGLOBIN 9.6 g/dl (12.0-16.0); IMMATURE GRANULOCYTES 0.6 % (0.0-5.0); MEAN CELL VOLUME 75.1 fL CALC (80.0-100.0); MEAN CORPUSCULAR HGB 20.8 pG CALC (26.0-32.0); MEAN CORPUSCULAR HGB CONC 27.7 g/dL CAL (32.0-36.0); NEUT# 4.27 thou/uL (2.00-7.15); RED BLOOD COUNT 4.62 mill/uL (4.20-5.60); RED CELL DISTRI WIDTH 24.1 % (11.5-15.5)
[2021-02-08 13:00] LABS: ALBUMIN 3.9 g/dL (3.2-5.0); ALKALINE PHOSPHATASE 112 u/l (38-126); ANION GAP 13 (6-22 (CALC)); BILIRUBIN, TOTAL 0.9 mg/dL (0.0-1.4); BUN 21 mg/dL (8-23); BUN/CREATININE RATIO 27 (12-20 (CALC)); CARBON DIOXIDE 26 mmol/l (22-30); CHLORIDE 101 mmol/l (95-108); CREATININE 0.8 mg/dL (0.5-1.0); GFR > 60 ML/MIN (>=60 (CALC)); GFR FOR AFR.AMER. > 60 ML/MIN (>=60 (CALC)); LIPASE 65 u/l (23-300); POTASSIUM 3.7 mmol/l (3.5-5.1); SGOT/AST 22 u/l (9-36); SODIUM 136 mmol/l (137-146); TOTAL PROTEIN 8.2 g/dL (6.3-8.2)
[2021-02-08 13:01] LABS: ACT PARTIAL THROMBO TIME 23.6 SECONDS (20.0-32.5); INTERNATIONAL NORMALIZED RATIO 1.2 RATIO (0.7-1.3); PROTHROMBIN TIME 12.1 SECONDS (9.0-12.5)
[2021-02-08 14:34] VITALS: BP 126/71
== END 2021-02-08 14:50 | disposition home or self-care (01) | DRG 313 ==
LOC: ED 12:19
DX: R07.9 Chest pain, unspecified (principal); I48.91 Unspecified atrial fibrillation; C34.90 Malignant neoplasm of unspecified part of unspecified bronchus or lung; I50.9 Heart failure, unspecified; J44.9 Chronic obstructive pulmonary disease, unspecified; F17.210 Nicotine dependence, cigarettes, uncomplicated; Z51.5 Encounter for palliative care; Z20.822 Contact with and (suspected) exposure to COVID-19

== ENCOUNTER 2021-02-18 14:53 | Observation (INO) | payer OTHER, MEDICARE, MEDICAID ==
[~2021-02-18] VITALS: Ht 170.2 cm; Wt 79.0 kg
--- NOTE | 2021-02-18 14:53 | NUR ---
PT ARRIVES BY EMS
--- NOTE | 2021-02-18 15:30 | NUR ---
TREATMENTS COMPLETED AND FLUIDS INITIATED. FLOWING INTO PATENT IV
[2021-02-18 16:17] LABS: HEMATOCRIT 31.4 % (37.0-47.0); HEMOGLOBIN 8.8 g/dl (12.0-16.0); IMMATURE GRANULOCYTES 0.4 % (0.0-5.0); MEAN CELL VOLUME 75.1 fL CALC (80.0-100.0); MEAN CORPUSCULAR HGB 21.1 pG CALC (26.0-32.0); NEUT# 3.2 thou/uL (2.00-7.15); RED BLOOD COUNT 4.18 mill/uL (4.20-5.60); RED CELL DISTRI WIDTH 23.1 % (11.5-15.5)
[2021-02-18 16:19] LABS: URINE BILIRUBIN - DIPSTICK NEGATIVE (NEGATIVE); URINE BLOOD DIPSTICK NEGATIVE (NEGATIVE); URINE COLOR YELLOW; URINE GLUCOSE - DIPSTICK NEGATIVE (NEGATIVE); URINE KETONE NEGATIVE (NEGATIVE); URINE LEUK ESTERASE NEGATIVE (NEGATIVE); URINE PH 5.5 (4.5-8.0); URINE PROTEIN - DIPSTICK NEGATIVE (NEG-TRACE)
[2021-02-18 16:21] LABS: URINE NITRITE - DIPSTICK NEGATIVE (Negative)
--- NOTE | 2021-02-18 16:37 | NUR ---
NURSE AT [facility] CALLED FOR UPDATE ON PT.
[2021-02-18 16:38] LABS: ALBUMIN 3.3 g/dL (3.2-5.0); ALKALINE PHOSPHATASE 122 u/l (38-126); AMYLASE 74 u/l (30-110); ANION GAP 12 (6-22 (CALC)); BILIRUBIN, TOTAL 0.7 mg/dL (0.0-1.4); BUN 15 mg/dL (8-23); BUN/CREATININE RATIO 20 (12-20 (CALC)); CARBON DIOXIDE 23 mmol/l (22-30); CHLORIDE 102 mmol/l (95-108); CREATININE 0.7 mg/dL (0.5-1.0); GFR > 60 ML/MIN (>=60 (CALC)); GFR FOR AFR.AMER. > 60 ML/MIN (>=60 (CALC)); LIPASE 56 u/l (23-300); SGOT/AST 20 u/l (9-36); SODIUM 134 mmol/l (137-146); TOTAL PROTEIN 7.5 g/dL (6.3-8.2)
[2021-02-18 16:48] LABS: POTASSIUM 2.9 mmol/l (3.5-5.1)
[2021-02-18 16:53] LABS: ACT PARTIAL THROMBO TIME 23.7 SECONDS (20.0-32.5); INTERNATIONAL NORMALIZED RATIO 1.1 RATIO (0.7-1.3); PROTHROMBIN TIME 11.6 SECONDS (9.0-12.5)
--- NOTE | 2021-02-18 17:23 | NUR ---
PT GONE TO CT
--- NOTE | 2021-02-18 18:55 | NUR ---
GAVE REPORT TO DYLON
--- NOTE | 2021-02-18 20:00 | NUR ---
PT RESTING, NO S/S OF DISTRESS, IVF INFUSING, SKIN WARM ADN DRY PT AWARE OF PLANNED ADMISSION
--- NOTE | 2021-02-18 21:00 | NUR ---
PT DOZING NO S/S OF DISTRESS NOTED, AWARE OF P-LANNED ADMISSION AWAITING BED ASSIGNMENT.
--- NOTE | 2021-02-18 21:44 | NUR ---
CALL INTO [facility] FOR REPORT WILL CALL BACK
--- NOTE | 2021-02-18 21:50 | NUR ---
REPORT CALLED TO MIKE CHARLES ON MED SURG
--- NOTE | 2021-02-18 22:05 | NUR ---
DYLON NOTIFIED OF L.A. PT GOING TO FLOOR. TRENDING DOWNWARD.
--- NOTE | 2021-02-18 22:10 | NUR ---
PT TRASNPORTED TO MED SURG VIA STRETCHER WITH ALL BELONGINGS WITH PT.
--- NOTE | 2021-02-18 22:15 | NUR ---
PT ARRIVED TO MED SURG UNIT VIA STRETCHER ACCOMPANIED BY FLYING I INSTRUCTOR ARACELI HARLEY. PT APPEARS TO BE IN STABLE CONDITION AND IS SLEEPING MAKING SONOROUS SOUNDS. PT TRANSFERRED BY SLIDING AND THEN SHE SAT UP AND REPOSITIONED HERSELF. PT CLEANED OF INCONTINENT URINE, PUREWICK WAS PLACED FOR INCONTINENT URINE CARE. V/S ASSESSED, BP 96/64, HR 82. DRESSING TO WOUNDS TO RLE X2 CHANGED AND PICTURES TAKEN, WOUND TO L.HEEL DRESSING PLACED, HEEL PROTECTORS PLACED BILATERALLY AND HEELS FLOATED WITH PILLOWS. PT IS VERY GROGGY ACTING BUT FOLLOWS DIRECTIONS RELUCTANTLY. PICTURES OF WOUNDS PLACED IN CHART. PT ASSESSED AT THIS TIME.
[2021-02-18 22:20] VITALS: BP 96/64
--- NOTE | 2021-02-18 22:40 | NUR ---
SILICONE DRESSINGS DATED 02/14/21 REMOEVED FROM R-FARFAN AND R-DORSAL FOOT. WOUND TO R-FARFAN OBSCURED WITH SLOUGH. WOUND TO R-DORSAL FOOT WITH GRANULATION TISSUE. L-HEEL WITH ESCHAR OBSCURED WOUND. BLE DRY AND FLAKY. PHOTO DOCUMENTATION TAKEN FOR PT'S RECORD. BLE AND WOUNDS CLEANSED WITH WARM SOAPY WATTER. PATTED DRY. SILVER ALGINATE DRESSING APPLIED TO R-FARFAN WOUND AND SECURED WITH DUODERM. DUODERM DRESSING APPLIED TO R-DORSAL FOOT WOUND. ALLEVYN NONE ADHESIVE FOAM SECURED TO L-HEEL WITH KERLEX AND COVERED WITH ELASTIC MESH. B/L HEEL PADS APPLIED FOR COMFORT. WOUND CARE CONSULTED.
--- NOTE | 2021-02-18 23:20 | NUR ---
LAB IS IN WITH PT AT THIS TIME.
--- NOTE | 2021-02-18 23:31 | NUR ---
MEDICATION ADMINISTERED TO PT WITH APPLESAUCE. SHE IS LEFT SITTING UP IN BED EATING APPLESAUSE WITH WATER W/IN REACH.
[2021-02-19] VITALS: BP 99/69
--- NOTE | 2021-02-19 00:40 | NUR ---
ANTIBIOTIC THERAPY ADMINISTERED AT THIS TIME. PT WAS SLEEPING, AWOKE TO MY VOICE. I ATTEMPTED TO HELP HER REPOSITION FOR COMFORT, SHE REFUSED STATING "I AM OKAY HONEY." SHE IS SLEEPING BENT OVER TO HER LEFT SIDE, PILLOWS PLACED FOR COMFORT MUCH POSSIBLE/ALLOWABLE. PT LOC X3.
[2021-02-19 04:25] VITALS: BP 94/67
--- NOTE | 2021-02-19 05:09 | NUR ---
[employer] LEADER REPORTED THAT PT HAD NOT HAD ANY URINE OUTPUT SINCE ARRIVING TO MED SURG. PT BLADDER SCANNED @461 AND PLACED ON BEDPAN, SHE WAS ABLE TO URINATE 200CC AT THIS TIME.
[2021-02-19 05:22] LABS: HEMATOCRIT 29.4 % (37.0-47.0); HEMOGLOBIN 8.3 g/dl (12.0-16.0); MEAN CELL VOLUME 74.6 fL CALC (80.0-100.0); MEAN CORPUSCULAR HGB 21.1 pG CALC (26.0-32.0); MEAN CORPUSCULAR HGB CONC 28.2 g/dL CAL (32.0-36.0); RED BLOOD COUNT 3.94 mill/uL (4.20-5.60); RED CELL DISTRI WIDTH 22.6 % (11.5-15.5)
[2021-02-19 05:43] LABS: ANION GAP 12 (6-22 (CALC)); BUN 13 mg/dL (8-23); BUN/CREATININE RATIO 21 (12-20 (CALC)); CARBON DIOXIDE 23 mmol/l (22-30); CHLORIDE 106 mmol/l (95-108); CREATININE 0.6 mg/dL (0.5-1.0); GFR > 60 ML/MIN (>=60 (CALC)); GFR FOR AFR.AMER. > 60 ML/MIN (>=60 (CALC)); SODIUM 137 mmol/l (137-146)
[2021-02-19 05:49] LABS: POTASSIUM 3.6 mmol/l (3.5-5.1)
[2021-02-19 07:24] VITALS: BP 108/76
--- NOTE | 2021-02-19 08:08 | NUR ---
SHIFT CHANGE REPORT, PT ALERT SITTING UP AT BEDSIDE WITH LEGS LANGING OVER EDGE, SHE REFUSED TO HAVE LEGS BACK IN BED STATING SHE WANTS TO SIT JUST LIKE FOR A WHILE, O2 @ 2L VIA NC IN PLACE, TELE MONITOR IN PLACE, CALL [employer]ENA IN REACH AND BED LOCKED IN LOWEST POSITION.
--- NOTE | 2021-02-19 08:55 | NUR ---
STAFF ASSISTED PT TO HAVE LEGS IN BED RATHER THAN HAVE THEM HANGING OVER SIDE BUT PT RETURNED TO FORMER POSITION WITH LEGS HANGING OVER AND STATES SHE WANTS TO BE IN THAT POSITION FOR NOW, ADVISED OF FALL RISK BUT REPEATS SHE WONT FALL, WILL CONTINUE TO MONITOR.
[2021-02-19] MEDS ORDERED: BUMETANIDE1 MG PO (09:48)
[2021-02-19] MEDS ORDERED: QUETIAPINE FUMA25 MG PO (09:54)
[2021-02-19] MEDS ORDERED: CETIRIZINE10 MG PO (10:01)
[2021-02-19] MEDS ORDERED: LOSARTAN POTASS50 MG PO (10:13)
[2021-02-19] MEDS ORDERED: MIRTAZAPINE15 MG PO (10:19)
[2021-02-19] MEDS ORDERED: OXYCODONE10 M1 PO (10:23)
[2021-02-19] MEDS ORDERED: HYDROCHLOROTH12.5 M1 PO (10:27)
[2021-02-19 10:31] VITALS: BP 109/70
[2021-02-19] MEDS ORDERED: TOPROL XL25 M1 PO ×2 (11:17→11:27)
[2021-02-19] MEDS ORDERED: DOXYCYCL HYC100 MG PO (11:51)
[2021-02-19] MEDS ORDERED: KEFLEX500 MG PO (11:52)
--- NOTE | 2021-02-19 12:52 | NUR ---
PT FOUND SITTING ON SIDE OF BED WITH IV CATHETER DISLODGED AND PROFUSE BLEEDING FROM SITE, PRESSURE APPLIED AND BLEEDING SUBSIDED, ASSISTED LEGS BACK IN BED, CALL [employer]ENA IN REACH.
--- NOTE | 2021-02-19 13:26 | NUR ---
Discharge instructions given. Patient verbalizes understanding of same. Discharged in poor condition via Wheelchair to Home with family. All belongings sent with pt.
== END 2021-02-19 13:21 | disposition hospice, inpatient (51) | DRG 872 ==
LOC: ED 14:53 → ED-I 18:40 → ED 18:47 → MS2 18:48
PROVIDERS: ADMIT Internal Medicine; ATTEND Internal Medicine
DX: A41.9 Sepsis, unspecified organism (principal); C34.92 Malignant neoplasm of unspecified part of left bronchus or lung; E87.2 Acidosis; I96 Gangrene, not elsewhere classified; L97.819 Non-pressure chronic ulcer of other part of right lower leg with unspecified severity; L89.620 Pressure ulcer of left heel, unstageable; L89.619 Pressure ulcer of right heel, unspecified stage; D64.9 Anemia, unspecified; I95.9 Hypotension, unspecified; R10.9 Unspecified abdominal pain; E87.6 Hypokalemia; L60.2 Onychogryphosis; I50.9 Heart failure, unspecified; K44.9 Diaphragmatic hernia without obstruction or gangrene; I48.91 Unspecified atrial fibrillation; R15.9 Full incontinence of feces; K59.00 Constipation, unspecified; Z66 Do not resuscitate; Z51.5 Encounter for palliative care; Z87.891 Personal history of nicotine dependence; Z74.01 Bed confinement status; Z20.822 Contact with and (suspected) exposure to COVID-19
CPT/HCPCS: G0378; Q9967

== ENCOUNTER 2021-04-23 15:19 | Emergency (ER) | payer OTHER, MEDICARE, MEDICAID ==
[~2021-04-23] VITALS: Ht 170.2 cm; Wt 59.1 kg
[~2021-04-23 15:19] MED LIST changes: +BUMETANIDE1 MG PO; +LOSARTAN POTASS50 MG PO; +MIRTAZAPINE15 MG PO; +OXYCODONE10 M1 PO; +QUETIAPINE FUMA25 MG PO
[2021-04-23 20:30] VITALS: BP 102/74
== END 2021-04-23 21:05 | disposition home or self-care (01) | DRG 951 ==
LOC: ED 15:19
DX: Z03.89 Encounter for observation for other suspected diseases and conditions ruled out (principal); Z51.5 Encounter for palliative care; I50.9 Heart failure, unspecified; J44.9 Chronic obstructive pulmonary disease, unspecified; I48.91 Unspecified atrial fibrillation; F17.210 Nicotine dependence, cigarettes, uncomplicated; Z85.118 Personal history of other malignant neoplasm of bronchus and lung